=== PATIENT | male | born 1995 | race Caucasian/White ===

== ENCOUNTER 2019-12-30 16:35 | Emergency (ER) | payer OTHER ==
[~2019-12-30] VITALS: Ht 182.8 cm; Wt 77.0 kg
[~2019-12-30 16:35] MED LIST: CEPH500T PO; CLIN150C17 PO; CODE118S4 PO; FAMO20TA5 PO; HYDR-4226 PO; SULF1TAB38 PO
[2019-12-30 16:40] VITALS: BP 130/86
--- OUTSIDE RECORDS SUMMARY | 2019-12-30 16:42 | XMS REPORT | Continuity of Care Document ---
Author Organization Unknown Address Unknown Phone Unavailable Allergies Active Description Code Type Severity Reaction Onset Reported/Identified Relationship to Patient Clinical Status Yes Penicillins Drug Allergy N/A N/A 10/29/2008 Yes shimp Food Allergy N/A N/A 10/29/2008 Yes Penicillins Drug Allergy 10/29/2008 Yes shimp Food Allergy 10/29/2008 Yes Penicillins [id number] Drug Aller gy Unknown N/A 03/20/2010 Yes SHRIMP SHRIMP Unknown N/A 03/20/2010 Medications There is no data. Problems Date Dx Coded Attending Type Code Diagnosis Diagnosed By 10/29/2008 535.50 GAS TRITIS 10/29/2008 EUN CEBALLOS DO 535.50 GASTRITIS 03/19/2010 682.6 CELL ULITIS AND ABSCESS OF LEG EXCEPT FOOT 03/19/2010 EUN CEBALLOS DO 682.6 CELLULITIS AND ABSCESS OF LEG EXCEPT FOOT 04/11/2010 V70.3 SPOR TS/SCHOOL EXAM 04/11/2010 EUN CEBALLOS DO V70.3 SPORTS/SCHOOL EXAM 07/14/2010 478.19 OTH ER DISEASES OF NASAL CAVITY AND SINUSES 07/14/2010 719.46 JACQUI N IN JOINT INVOLVING LOWER LEG 07/14/2010 787.20 DYS PHAGIA UNSPECIFIED 07/14/2010 EUN CEBALLOS DO 478.19 OTHER DISEASES OF NASAL CAVITY AND SINUSES 07/14/2010 EUN CEBALLOS DO 719.46 PAIN IN JOINT INVOLVING LOWER LEG 07/14/2010 EUN CEBALLOS DO 787.20 DYSPHAGIA UNSPECIFIED 09/02/2010 789.66 ABD OMINAL TENDERNESS EPIGASTRIC 09/02/2010 EUN CEBALLOS DO 789.66 ABDOMINAL TENDERNESS EPIGASTRIC 12/30/2010 V70.5 PREEMPLOYMENT/PRESCHOOL EXAM 12/30/2010 EUN CEBALLOS DO V70.5 PREEMPLOYMENT/PRESCHOOL EXAM 03/23/2011 112.3 CAND IDIASIS OF SKIN AND NAILS 03/23/2011 EUN CEBALLOS DO 112.3 CANDIDIASIS OF SKIN AND NAILS 10/14/2011 462 ACUTE PHARYNGITIS 10/14/2011 EUN CEBALLOS DO K 462 ACUTE PHARYNGITIS 03/08/2013 EUN CEBALLOS DO V04.81 FLU SHOT 02/21/2015 CHARLIE HERNANDEZ Ot 4 62 ACUTE PHARYNGITIS 02/21/2015 CHARLIE HERNANDEZ Ot 465.9 ACUTE URI NOS 07/18/2015 YUSEF MOLINA APRN Ot K02 .9 DENTAL CARIES, UNSPECIFIED 07/18/2015 YUSEF MOLINA APRN Ot K04 .7 PERIAPICAL ABSCESS WITHOUT SINUS 07/18/2015 YUSEF MOLINA APRN Ot K08 .8 OTHER SPECIFIED DISORDERS OF TEETH AND S 07/19/2015 RICHARD MEREDITH, MAJO Anders Ot K02. 9 DENTAL CARIES, UNSPECIFIED 01/28/2016 YUSEF MOLINA APRN Ot S93.401A SPRAIN OF UNSPECIFIED LIGAMENT OF RIGHT 01/28/2016 YUSEF MOLINA APRN Ot S99.911A UNSPECIFIED INJURY OF RIGHT ANKLE, INITI 01/28/2016 YUSEF MOLINA APRN Ot X58.XXXA EXPOSURE TO OTHER SPECIFIED FACTORS, INI 01/28/2016 YUSEF MOLINA APRN Ot Y99 .8 OTHER EXTERNAL CAUSE STATUS 01/29/2016 YUSEF MOLINA APRN Ot S93.401A SPRAIN OF UNSPECIFIED LIGAMENT OF RIGHT 01/29/2016 YUSEF MOLINA APRN Ot S99.911A UNSPECIFIED INJURY OF RIGHT ANKLE, INITI 01/29/2016 YUSEF MOLINA APRN Ot X58.XXXA EXPOSURE TO OTHER SPECIFIED FACTORS, INI 01/29/2016 YUSEF MOLINA APRN Ot Y99 .8 OTHER EXTERNAL CAUSE STATUS Procedures There is no data. Results Test Result Range CBC - 09/02/18 13:41 WHITE BLOOD CELL COUNT 4.8 Thousand/uL 3 .8-10.8 RED BLOOD CELL COUNT 5.65 Million/uL 4.2 0-5.80 HEMOGLOBIN 18.0 g/dL 13.2-17.1 HEMATOCRIT 51.1 % 38.5-50.0 MCV 90.4 fL 80.0-100.0 MCH 31.9 pg 27.0-33.0 MCHC 35.2 g/dL 32.0-36.0 RDW 12.8 % 11.0-15.0 PLATELET COUNT 230 Thousand/uL 140-400 MPV 10.9 fL 7.5-12.5 ABSOLUTE NEUTROPHILS 2645 cells/uL 1500- 7800 ABSOLUTE LYMPHOCYTES 1478 cells/uL 850-3 900 ABSOLUTE MONOCYTES 389 cells/uL 200-950 ABSOLUTE EOSINOPHILS 230 cells/uL 15-500 ABSOLUTE BASOPHILS 58 cells/uL 0-200 NEUTROPHILS 55.1 % NRG LYMPHOCYTES 30.8 % NRG MONOCYTES 8.1 % NRG EOSINOPHILS 4.8 % NRG BASOPHILS 1.2 % NRG Encounters ACCT No. Visit Date/Time Discharge Status Pt. Type Provider Facility Loc./Unit Complaint [id number] 03/08/2013 15:36:00 03/08/2013 23:59: 59 [place] [id number] 04/11/2012 15:55:00 04/11/2012 23:59:5 9 CLS Outpatient [id number] 10/31/2018 10:31:00 019 23:59:59 CLS Preadmit NANDO MEREDITH, PARTH Patel [facility] RAD SEIZURE DISORDER [id number] 01/28/2016 21:11:00 016 21:54:00 DIS Emergency YUSEF MOLINA APRN [facility] ER R FOOT INJ [id number] 07/19/2015 00:13:00 016 00:23:00 DIS Emergency MAJO RAMOS MD [facility] ER DENTAL PAIN [id number] 07/18/2015 19:50:00 016 20:19:00 DIS Emergency YUSEF MOLINA APRN [facility] ER DENTAL PAIN [id number] 02/21/2015 19:23:00 015 22:06:00 DIS Emergency CHARLIE HERNANDEZ [facility] ER SORE THROAT, NECK PAIN, FATIGUE [id number] 01/10/2019 14:40:00 01/10/2019 23:59:5 9 CLS Outpatient CHUCHO VALLE APRN [facility] [id number] 09/02/2018 13:20:00 Document Registration
--- OUTSIDE RECORDS SUMMARY | 2019-12-30 16:42 | XMS REPORT ---
Author Author Jarvis COLLIER Organization [facility] Address [address] [place] [address] Care Team Providers Care Heater Operator Name Role Phone PARTH COLLIER Unavailable PROBLEMS Unknown Problems ALLERGIES Substance Reaction Event Type Date Status Penicillin G Benzathine Unknown Drug Allergy Mar, Acti ve ENCOUNTERS Encounter Location Date Diagnosis [place] [address] [address] Mar, Right flank pain R10.9 [place] [address] [address] 20 Mar, 2017 Viral syndrome B34.9 [place] [address] [address] 14 Mar, 2017 Strain of lumbar region, ini tial encounter S39.012A and Contusion of left lower leg, initial encounter S80.12XA [facility] [id number] [place] [id number] Jul, Dental examination Z01.20 [facility] [address] [place] [id number] [address] [place] [phone] 09 Jul, 2015 Periodontal abscess K05.21 a nd Lumbago M54.5 [facility] [address] [place] [id number] [address] [place] [phone] 29 Jul, 2015 Dental examination Z01.20 [facility] [address] [id number] 19 Jul, 2015 Encounter for dental examina tion and cleaning without abnormal findings Z01.20 [facility] [address] [place] [id number] [address] [place] [phone] 08 Feb, 2016 Dental examination Z01.20 [facility] [address] [id number] [address] [place] [address] [id number] 13 Sep, 2014 Dental examination V72.2 [facility] [address] [id number] [address] [place] [phone] 14 Aug, 2014 [facility] [address] [id number] [address] [place] [phone] Aug, [facility] [address] [id number] [address] [place] [phone] Jul, [facility] [address] [id number] [address] [place] [phone] Jul, [facility] [address] [id number] [address] [place] [phone] Feb, [facility] [address] [id number] [address] [place] [phone] Feb, [facility] [address] [id number] [address] [place] [phone] Mar, [facility] [address] [id number] [address] [place] [phone] Mar, [facility] [address] [id number] [address] [place] [phone] September, [facility] [address] [id number] [address] [place] [phone] Feb, [facility] [address] [id number] [address] [place] [phone] Jul, [facility] [address] [id number] [address] [place] [phone] Mar, [facility] [address] [id number] [address] [place] [phone] Mar, [facility] [address] [id number] [address] [place] [phone] Feb, [facility] [address] [id number] [address] [place] [phone] Feb, [facility] [address] [facility] [id number] [address] [place] [phone] Feb, IMMUNIZATIONS No Known Immunizations SOCIAL HISTORY Never Assessed REASON FOR VISIT fever/chills for three days, lower back pain--Bill Mathur MA PLAN OF CARE Activity Details Follow Up prn Reason: VITAL SIGNS Height 70 in 2017-04-19 Weight 155.8 lbs 2017-04-19 Temperature 99.3 degrees Fahrenheit 2017-04-19 Heart Rate 92 bpm 2017-04-19 Respiratory Rate 2017-04-19 BMI 22.35 kg/m2 2017-04-19 Blood pressure systolic 112 mmHg 2017-04-19 Blood pressure diastolic 78 mmHg 2017-04-19 MEDICATIONS Medication Instructions Dosage Frequency Start Date End Date Duration S navjot Cyclobenzaprine HCl 10 mg Orally Three times a day 1 tablet as need ed 8h Mar, Mar, 07 days Active Diclofenac Sodium 75 MG Orally Twice a day 1 tablet with food or mi lk 12h Mar, Mar, 14 days Not-Taking RESULTS No Results PROCEDURES No Known procedures INSTRUCTIONS MEDICATIONS ADMINISTERED No Known Medications MEDICAL (GENERAL) HISTORY Type Description Date Surgical History tonsillectomy Hospitalization History MRSA
--- OUTSIDE RECORDS SUMMARY | 2019-12-30 16:42 | XMS REPORT ---
Author Author Jarvis Patino Doctor Organization [facility] Address Unknown Phone Unavailable Care Team Providers Care Traffic Signal Technician Name Role Phone Migration, Doctor Unavailable Unavailable PROBLEMS Unknown Problems ALLERGIES No Information ENCOUNTERS Encounter Location Date Diagnosis [place] [address] [address] Mar, Right flank pain R10.9 [place] [address] [address] Mar, Viral syndrome B34.9 [place] [address] [address] 14 Mar, 2017 Strain of lumbar region, ini tial encounter S39.012A and Contusion of left lower leg, initial encounter S80.12XA [facility] [address] [place] [id number] [place] [phone] Jul, Dental examination Z01.20 [place] [address] [address] Jul, Periodontal abscess K05.21 a nd Lumbago M54.5 [place] [address] [address] Jul, Dental examination Z01.20 [facility] [address] [place] [id number] [place] [address] [id number] 19 Jul, 2015 Encounter for dental examina tion and cleaning without abnormal findings Z01.20 [place] [address] [place] [id number] [address] [place] [phone] 08 Jul, 2015 Dental examination Z01.20 [facility] [address] [place] [id number] September, Dental examination V72.2 [facility] [address] [id number] [address] [place] [address], [place] [address] 14 Aug, 2014 [facility] [address] [id number] [address] [place] [address], [place] [address] 13 Aug, 2014 [facility] [address] [id number] [address] [place] [address], [place] [address] Jul, [facility] [address] [id number] [address] [place] [address], [place] [address] Jul, [facility] [address] [id number] [address] [place] [address], [place] [address] Feb, [facility] [address] [id number] [address] [place] [address], [place] [address] Feb, [facility] [address] [id number] [address] [place] [address], [place] [address] Mar, [facility] [address] [id number] [address] [place] [address], [place] [address] Mar, [facility] [address] [id number] [address] [place] [address], [place] [address] September, [facility] [address] [id number] [address] [place] [address], [place] [address] Feb, [facility] [address] [id number] [address] [place] [address], [place] [address] Jul, [facility] [address] [id number] [address] [place] [address], [place] [address] Mar, [facility] [address] [id number] [address] [place] [address], [place] [address] Mar, [facility] [address] [id number] [address] [place] [address], [place] [address] Feb, [facility] [address] [id number] [address] [place] [address], [place] [address] Feb, [facility] [address] [id number] [address] [place] [address], [place] [address] Feb, IMMUNIZATIONS No Known Immunizations SOCIAL HISTORY Never Assessed REASON FOR VISIT [facility] [place] CARE VITAL SIGNS MEDICATIONS Medication Instructions Dosage Frequency Start Date End Date Duration S tatus MethylPREDNISolone 4 mg by Oral route ev raiza day for 6 days as directed per dose pack Jul, Active Silvadene 1 % apply 1 dose a 1/16 inch (1.5 mm) thick layer to entire burn area by Topical route 1 time per day Jul, Active RESULTS No Results PROCEDURES No Known procedures INSTRUCTIONS MEDICATIONS ADMINISTERED No Known Medications MEDICAL (GENERAL) HISTORY Type Description Date Surgical History tonsillectomy Hospitalization History MRSA
--- OUTSIDE RECORDS SUMMARY | 2019-12-30 16:42 | XMS REPORT ---
Author Author Jarvis Patino Doctor Organization [facility] Address Unknown Phone Unavailable Care Team Providers Care Rehab/Pre Vocational Counselor Name Role Phone Migration, Doctor Unavailable Unavailable PROBLEMS Unknown Problems ALLERGIES No Information ENCOUNTERS Encounter Location Date Diagnosis [place] [address] [address] September, [place] [address] [address] Aug, Syncope and collapse R55 [place] [address] [address] Aug, Syncope and collapse R55 [place] [address] [address] Mar, Right flank pain R10.9 [place] [address] [address] Mar, Viral syndrome B34.9 [place] [address] [place] [id number] [address] [place] [address] Mar, Strain of lumbar region, ini tial encounter S39.012A and Contusion of left lower leg, initial encounter S80.12XA [facility] [address] [place] [id number] Jul, Dental examination Z01.20 [place] [place] [id number] [address] [place] [address] Jul, Periodontal abscess K05.21 a nd Lumbago M54.5 [place] [address] [place] [id number] [address] [place] [phone] Jul, Dental examination Z01.20 [facility] [address] [place] [address] [id number] b, 2016 Encounter for dental examina tion and cleaning without abnormal findings Z01.20 [facility] [address] [id number] [address] [place] [phone] 08 Jul, 2016 Dental examination Z01.20 [facility] [address] [id number] [address] [place] [address] [id number] 13 Sep, 2014 Dental examination V72.2 [facility] [address] [id number] [address] [place] [address] 14 Aug, 2014 [facility] [address] [id number] [address] [place] [phone] Aug, [facility] [address] [id number] [address] [place] [phone] Jul, [facility] [address] [id number] [address] [place] [address] Jul, [facility] [address] [id number] [address] [place] [phone] Feb, [facility] [address] [id number] [address] [place] [address] Feb, [facility] [address] [id number] [address] [place] [phone] Mar, [facility] [address] [id number] [address] [place] [address] Mar, [facility] [address] [id number] [address] [place] [address] September, [facility] [address] [id number] [address] [place] [phone] Feb, [facility] [address] [id number] [address] [place] [phone] 14 Jul, 2010 [facility] [address] [id number] [address] [place] [address] Mar, [facility] [address] [id number] [address] [place] [phone] Mar, [facility] [address] [facility] [id number] [address] [place] [phone] Feb, [facility] [address] [facility] [id number] [address] [place] [phone] Feb, [facility] [address] [facility] [id number] [address] [place] [address] Feb, IMMUNIZATIONS No Known Immunizations SOCIAL HISTORY Never Assessed REASON FOR VISIT EMR[place] PLAN OF CARE VITAL SIGNS MEDICATIONS Unknown Medications RESULTS No Results PROCEDURES No Known procedures INSTRUCTIONS MEDICATIONS ADMINISTERED No Known Medications MEDICAL (GENERAL) HISTORY Type Description Date Surgical History tonsillectomy Hospitalization History MRSA
--- OUTSIDE RECORDS SUMMARY | 2019-12-30 16:42 | XMS REPORT ---
Author Author Jarvis POWERS Organization [facility] Address [address] [place] [address] Care Team Providers Care Card Placer Name Role Phone ROSIE POWERS Unavailable PROBLEMS Unknown Problems ALLERGIES Substance Reaction Event Type Date Status Penicillin G Benzathine Unknown Drug Allergy Mar, Acti ve ENCOUNTERS Encounter Location Date Diagnosis [address] [address] Mar, Right flank pain R10.9 [place] [address] [address] 20 Mar, 2017 Viral syndrome B34.[address] [address] 14 Mar, 2017 Strain of lumbar region, ini tial encounter S39.012A and Contusion of left lower leg, initial encounter S80.12XA [facility] [address] [place] [address] [id number] Jul, Dental examination Z01.20 [place] [address] [place] [id number] [address] [place] [phone] 09 Jul, 2015 Periodontal abscess K05.21 a nd Lumbago M54.5 [place] [address] [place] [id number] [address] [place] [phone] 29 Jul, 2015 Dental examination Z01.20 [facility] [address] [place] [id number] [place] [address] [id number] 19 Jul, 2015 Encounter for dental examina tion and cleaning without abnormal findings Z01.20 [place] 0[address] [place] [id number] [address] [place] [phone] 08 Jul, 2015 Dental examination Z01.20 [facility] [address] [id number] [address] [place] [address] [id number] September, Dental examination V72.2 [facility] [address] [id number] [address] [place] [phone] Aug, [facility] [address] [id number] [address] [place] [phone] Aug, [facility] [address] [id number] [address] [place] [phone] Jul, [facility] [address] [id number] [address] [place] [address], [place] [address] Jul, [facility] [address] [id number] [address] [place] [phone] Feb, [facility] [address] [id number] [address] [place] [phone] Feb, [facility] [address] [id number] [address] [place] [phone] Mar, [facility] [address] [id number] [address] [place] [phone] Mar, [facility] [address] [id number] [address] [place] [phone] September, [facility] [address] [id number] [address] [place] [phone] Feb, [facility] [address] [id number] [address] [place] [phone] Jul, [facility] [address] [id number] [address] [place] [phone] Mar, [facility] [address] [id number] [address] [place] [phone] Mar, [facility] [address] [id number] [address] [place] [phone] Feb, [facility] [address] [id number] [address] [address] Feb, [facility] [address] [facility] [id number] [address] [address] Feb, IMMUNIZATIONS No Known Immunizations SOCIAL HISTORY Never Assessed REASON FOR VISIT Pain (acute)back, whole back area frezzes up with pain for two weeks-Adam FOX PLAN OF CARE Activity Details Follow Up prn Reason: VITAL SIGNS Height 70 in 2017-04-21 Weight 155.6 lbs 2017-04-21 Temperature 98.4 degrees Fahrenheit 2017-04-21 Heart Rate 76 bpm 2017-04-21 Respiratory Rate 18 2017-04-21 BMI 22.32 kg/m2 2017-04-21 Blood pressure systolic 114 mmHg 2017-04-21 Blood pressure diastolic 78 mmHg 2017-04-21 MEDICATIONS Medication Instructions Dosage Frequency Start Date End Date Duration S tatus Diclofenac Sodium 75 MG Orally Twice a day 1 tablet with food or mi lk 12h Mar, Mar, 14 days Active RESULTS No Results PROCEDURES No Known procedures INSTRUCTIONS MEDICATIONS ADMINISTERED No Known Medications MEDICAL (GENERAL) HISTORY Type Description Date Surgical History tonsillectomy Hospitalization History MRSA
--- OUTSIDE RECORDS SUMMARY | 2019-12-30 16:42 | XMS REPORT ---
Author Author Jarvis Patino Doctor Organization [facility] Address Unknown Phone Unavailable Care Team Providers Care Supervisor Concrete Block [employer] Name Role Phone Migration, Doctor Unavailable Unavailable PROBLEMS Type Condition ICD9-CM Code RTZ70-VS Code Onset Dates Condition S tatus SNOMED Code Problem Seizure disorder G40.909 Active 128 [id number] ALLERGIES No Information ENCOUNTERS Encounter Location Date Diagnosis [place] [id number] [facility] [id number] [address] [place] [phone] September, Seizure disorder G40.909 [place] [address] [place] [id number] [address] [place] [phone] September, Seizure disorder G40.909 [facility] [address] [place] [id number] [address] [place] [phone] Aug, Syncope and collapse R55 [place] [address] [place] [id number] [address] [place] [phone] Aug, Syncope and collapse R55 [place] [address] [place] [id number] [address] [place] [phone] Mar, Right flank pain R10.9 [place] [address] [place] [id number] [address] [place] [phone] Mar, Viral syndrome B34.9 [facility] [address] [place] [id number] [address] [place] [phone] 14 Mar, 2017 Strain of lumbar region, ini tial encounter S39.012A and Contusion of left lower leg, initial encounter S80.12XA [facility] [address] [id number] [address] [place] [phone] Jul, Dental examination Z01.20 [facility] [address] [facility] [id number] [address] [place] [phone] Jul, Periodontal abscess K05.21 a nd Lumbago M54.5 [facility] [address] [id number] [address] [place] [phone] 29 Jul, 2015 Dental examination Z01.20 [facility] [address] [id number] [address] [place] [phone] 19 Jul, 2015 Encounter for dental examina tion and cleaning without abnormal findings Z01.20 [facility] [address] [id number] [address] [place] [phone] 08 Jul, 2015 Dental examination Z01.20 [facility] [address] [id number] [address] [place] [address] [phone] September, Dental examination V72.2 [facility] [address] [id number] [address] [place] [phone] Aug, [facility] [address] [id number] [address] [place] [phone] Aug, [facility] [address] [id number] [address] [place] [phone] Jul, [facility] [address] [id number] [address] [place] [phone] Jul, [facility] [address] [id number] [address] [place] [phone] Feb, [facility] [address] [id number] [address] [place] [phone] Feb, [facility] [address] [id number] [address] [place] [phone] Mar, [facility] [address] [id number] [address] [place] [phone] Mar, [facility] [address] [id number] [address] [place] [phone] September, [facility] [address] [id number] [address] [place] [phone] Feb, [facility] [address] [id number] [address] [place] [phone] Jul, [facility] [address] [id number] [address] [place] [phone] Mar, [facility] [address] [id number] [address] [place] [phone] Mar, [facility] [address] [id number] [address] [place] [phone] Feb, [facility] [address] [id number] [address] [place] [phone] Feb, [facility] [address] [id number] [address] [place] [phone] Feb, IMMUNIZATIONS No Known Immunizations SOCIAL HISTORY Never Assessed REASON FOR VISIT PLAN OF CARE VITAL SIGNS Height 70 in 2014-07-31 Weight 145.06 lbs 2014-07-31 Temperature 98 degrees Fahrenheit 2014-07-31 Heart Rate 76 bpm 2014-07-31 Respiratory Rate 18 2014-07-31 Blood pressure systolic 114 mmHg 2014-07-31 Blood pressure diastolic 74 mmHg 2014-07-31 MEDICATIONS Unknown Medications RESULTS No Results PROCEDURES No Known procedures INSTRUCTIONS MEDICATIONS ADMINISTERED No Known Medications MEDICAL (GENERAL) HISTORY Type Description Date Surgical History tonsillectomy Hospitalization History MRSA
--- OUTSIDE RECORDS SUMMARY | 2019-12-30 16:42 | XMS REPORT ---
Author Author [place] [employer] hat block bench hand [email or web address] Address [address] [address] Care Team Providers Care Custom Dressmaker Name Role Phone NO, LOCAL PHYSICIAN Unavailable Unavailable ROSIE POWERS Unavailable PARTH COLLIER Unavailable PARTH COLLIER Unavailable Migration, Doctor Unavailable Unavailable Migration, Doctor Unavailable Unavailable PoliE, CHUCHO A Unavailable Unavailable Migration, Doctor Unavailable Unavailable Unavailable Unavailable Allergies The data below is from unstructured sources No Information No Information No Information No Information No Information Encounters Encounter Date Encounter Type Encounter Diagnosis Care Provider Facility Start: Patient encounter [facility] ([id number]) Start: [facility] encounter [facility] 10-[facility]-2018 procedure [facility] ([id number]) Start: [facility] unspecified, not intractable, without status epilepticus Start: Patient encounter [facility] 10-17-2018 procedure [facility] ([id number]) Start: Patient encounter [facility] 09-06-2018 procedure [facility] ([id number]) Start: Patient encounter [facility] 09-02-2018 procedure [facility] (41962) Start: Patient encounter [facility] 09-02-2018 procedure [facility] ([id number]) Medical Equipment No Information Goals No Information Immunizations The data below is from unstructured sourcesNo immunization records.No immunization records.No immunization records.No immunization records.No immunization records. No Known Immunizations No Known Immunizations No Known Immunizations No Known Immunizations No Known Immunizations No Known Immunizations No Known Immunizations No Known Immunizations Interventions No Information Medications The data below is from unstructured sources Unknown Medications Unknown Medications No Known Medications No Known Medications Unknown Medications No Known Medications Payers No Information Plan of Treatment The data below is from unstructured sources Discharge Date 01/28/16 9:54pm Disposition 01 HOME, SELF-CARE Condition at Discharge Stable Instructions/Education Provided Ankl e Sprain Exercises (GEN) Ankle Sprain (ED) Prescriptions See Medication Section Referrals PARTH MASON DPM - NO,LOCAL PHYSICIAN - Primary Care Physician SERJIO GUNTER DPM - Additional Instructions/Education 1. If your pain does not improve in 2-3 weeks, follow-up with one of the orthopedic surgeons listed 2. Return to ER for any concerns 3. Keep the foot elevated. Use ice pack for 20 minutes every 2-3 hours and use crutches for the next 3-5 days Discharge Date 07/18/15 8:19pm Disposition 01 HOME, SELF-CARE Condition at Discharge Improved Instructions/Education Provided Cooper al Abscess (ED) Prescriptions See Medication Section Referrals NO,LOCAL PHYSICIAN - [facility] Care Physician Additional Instructions/Education 1. Stop the current antibiotics and start the new antibiotics 2. Follow-up with your dentist as schedu led 3. Return to ER for any fevers or increa sed swelling All discharge instructions reviewed with patient and/or family. Voiced understanding. Discharge Date 07/19/15 12:23am Disposition 01 HOME, SELF-CARE Condition at Discharge Stable Instructions/Education Provided Cooper al Caries (ED) Prescriptions See Medication Section Referrals NO[facility] Additional Instructions/Education Se e dentist as soon as possible. All discharge instructions reviewed with patient and/or family. Voiced understanding. Activity Details Follow Up prn Reason: Problems Problem Problem Date Last Documented Episodic/Chr Provider Classificati Recorded Date onic on Epilepsy; Seizure disorder ; Translations: Chronic Doctor convulsions [Epilepsy, unspecified, not Migrati on (3 sources) intractable, without status epilepticus] Procedures The data below is from unstructured sourcesNo known history of procedures.No known history of procedures.No known history of procedures.No known history of procedures.No known history of procedures. No Known procedures No Known procedures No Known procedures No Known procedures No Known procedures No Known procedures No Known procedures No Known procedures Results Test Name Value Interpreta Reference Facilit Date tion Range y Time laboratory on 2018-09-02 Albumin [Mass/Vol] 5.1 g/dL Normal 3.6-5.1 Communi g/dL [facility] ([id number]) Albumin/Globulin 2.1 {ratio} Normal 1.0-2.5 Communi [Mass ratio] (calc) [facility] (73225) ALP [Catalytic 77 U/L Normal 40-115 U/L Communi activity/Vol] [facility] (83235) ALT [Catalytic 10 U/L Normal 9-46 U/L Communi activity/Vol] [facility] (73040) AST [Catalytic 16 U/L Normal 10-40 U/L Communi activity/Vol] [facility] (65021) Basophils (Bld) 0.058 10*3/uL Normal 0-200 Communi [#/Vol] cells/uL [facility] (49958) Basophils/100 WBC 1.2 % Normal % Communi (Bld) [facility] (62169) Bilirubin [Mass/Vol] 0.7 mg/dL Normal 0.2-1.2 Commu ni mg/dL [facility] (15916) Calcium [Mass/Vol] 10.1 mg/dL Normal 8.6-10.3 Communi mg/dL [facility] (24547) Chloride [Moles/Vol] 104 mmol/L Normal 98-110 Commu ni mmol/L [facility] (11509) CO2 [Moles/Vol] 28 mmol/L Normal 20-32 Communi mmol/L [facility] (15295) Creatinine 0.81 mg/dL Normal 0.60-1.35 Communi [Mass/Vol] mg/dL [facility] (13350) Eosinophils (Bld) 0.23 10*3/uL Normal 15-500 Communi [#/Vol] cells/uL [facility] (91525) Eosinophils/100 WBC 4.8 % Normal % Commun i (Bld) [facility] (78762) Erythrocyte 12.8 % Normal 11.0-15.0 Communi distribution width % ty (RBC) [Ratio] [facility] (08094) GFR/1.73 sq 145 mL/min/{1.73_m2} Normal > OR = 60 Commu ni M.predicted among mL/min/1.7 ty blacks MDRD 3m2 Health (S/P/Bld) [Vol Center rate/Area] [facility] (91085) GFR/1.73 sq 125 mL/min/{1.73_m2} Normal > OR = 60 Commu ni M.predicted MDRD mL/min/1.7 ty (S/P/Bld) [Vol 3m2 Health rate/Area] [facility] () Globulin (S) 2.4 g/dL Normal 1.9-3.7 Communi [Mass/Vol] g/dL ty (calc) [facility] (57881) Glucose [Mass/Vol] 77 mg/dL Normal 65-99 Communi mg/dL ty [facility] (24887) Hematocrit (Bld) 51.1 % High 38.5-50.0 Communi [Volume fraction] % ty [facility] (13009) Hemoglobin (Bld) 18.0 g/dL High 13.2-17.1 Communi [Mass/Vol] g/dL ty [facility] (76960) Lymphocytes (Bld) 1.478 10*3/uL Normal 850-3900 Commun i [#/Vol] cells/uL ty [facility] (83797) Lymphocytes/100 WBC 30.8 % Normal % Commun i (Bld) ty [facility] (18759) MCH (RBC) [Entitic 31.9 pg Normal 27.0-33.0 Communi mass] pg ty [facility] (46360) MCHC (RBC) 35.2 g/dL Normal 32.0-36.0 Communi [Mass/Vol] g/dL ty [facility] (31288) MCV (RBC) [Entitic 90.4 fL Normal 80.0-100.0 Communi vol] fL ty [facility] (88041) Monocytes (Bld) 0.389 10*3/uL Normal 200-950 Communi [#/Vol] cells/uL ty [facility] (05895) Monocytes/100 WBC 8.1 % Normal % Communi (Bld) [facility] (85542) Neutrophils (Bld) 2.645 10*3/uL Normal 4077-3354 Commun i [#/Vol] cells/uL ty [facility] (12223) Neutrophils/100 WBC 55.1 % Normal % Commun i (Bld) [facility] (65579) Platelet mean volume 10.9 fL Normal 7.5-12.5 Commu ni (Bld) [Entitic vol] fL [facility] (95511) Platelets (Bld) 230 10*3/uL Normal 140-400 Communi [#/Vol] Thousand/u ty L [facility] (83217) Potassium 4.7 mmol/L Normal 3.5-5.3 Communi [Moles/Vol] mmol/L ty [facility] (86025) Protein [Mass/Vol] 7.5 g/dL Normal 6.1-8.1 Communi g/dL [facility] (40926) RBC (Bld) [#/Vol] 5.65 10*6/uL Normal 4.20-5.80 Communi Million/uL ty [facility] (67154) Sodium [Moles/Vol] 140 mmol/L Normal 135-146 Communi mmol/L ty [facility] (11738) Urea nitrogen 9 mg/dL Normal 7-25 mg/dL Communi [Mass/Vol] [facility] (63594) Urea NOT APPLICABLE Invalid 6-22 Communi nitrogen/Creatinine Interpreta (calc) ty [Mass ratio] tion Code [facility] (47310) WBC (Bld) [#/Vol] 4.8 10*3/uL Normal 3.8-10.8 Communi Thousand/u ty L [facility] (29535) Social History No Information Vital Signs Date Time Vital Sign Value Performing Clinician Buck mcrae 07-31-2014 Body height 177.8 cm Doctor Migration [facility] 09:160500 [facility] (72840) 07-31-2014 Body temperature 98 [degF] Doctor Migration [facility] 09:16-0500 [facility] (88376) 07-31-2014 Body weight 65.8 kg Doctor Migration [facility] 09:160500 [facility] (88029) Functional Status The data below is from unstructured sourcesNo functional status results.No functional status results.No functional status results.No functional status results.No functional status results. Mental Status No Information Advance Directives Directive Response Recor ded Date/Time Advance Directives No 9:14pm Health Care Power of Marine Equipment Design Engineer No 01/28/16 9:14pm Resuscitation Status Full Code 01/28/16 9:14pm Directive Response Recor ded Date/Time Advance Directives No 7:57pm Health Care Power of Marine Equipment Design Engineer No 07/18/15 7:57pm Resuscitation Status Full Code 07/18/15 7:57pm Directive Response Recor ded Date/Time Advance Directives No 12:15am Health Care Power of Marine Equipment Design Engineer No 07/19/15 12:15am Resuscitation Status Full Code 07/19/15 12:15am Discharge Instructions No hospital discharge instructions.No hospital discharge instructions.No hospital discharge instructions. Additional Source Comments This clinical document has been generated using [employer] software that has been certified by the Office of the National Coordinator for Health Information Technology (ONC 15.99.04.3023.Diam.31.00.0.274850) and the National Committee for Senior Billing Consultant (NCQA, as an eMeasure certified technology). FOR RECORDS PERTAINING TO PATIENTS WHO ARE OR HAVE BEEN ENROLLED IN A CHEMICAL D EPENDENCY/SUBSTANCE ABUSE PROGRAM, SOME INFORMATION MAY BE OMITTED. This clinica summary was aggregated from multiple sources. Caution should be exercised in using it in the provision of clinical care. This summary normalizes information from multiple sources, and as a consequence, information in this document may ma terially change the coding, format and clinical context of patient data. In yovany tion, data may be omitted in some cases. CLINICAL DECISIONS SHOULD BE BASED ON T HE PRIMARY CLINICAL RECORDS. [facility]. provides no warranty or guara ntee of the accuracy or completeness of information in this document.The followi ng information is based on time limited clinical information UNRECOGNIZED CONTENT PROVIDED BELOW FOR UNRECOGNIZED SECTION REASON FOR VISIT [id number]
[2019-12-30] MEDS ORDERED: CLIN300C11 PO (16:48)
[2019-12-30] MEDS ORDERED: NAPR-1071 PO (16:48)
[2019-12-30] MEDS ORDERED: ACET-1672 PO (16:48)
--- NOTE | 2019-12-30 16:48 | ED EENT ---
History of Present Illness General Chief Complaint: Dental Problems/Pain Stated Complaint: DENTAL PAIN Source: patient Exam Limitations: no limitations History of Present Illness Date Seen by Provider: Dec 30, 2019 Time Seen by Provider: 16:44 Initial Comments To ER for left lower dental pain since last night Timing/Duration: abrupt Severity: moderate Location: dental Prearrival Treatment: no prearrival treatment Associated Symptoms: tooth pain Allergies and Home Medications Allergies Coded Allergies: Penicillins (Unverified Allergy, Unknown, 03/20/10) Uncoded Allergies: SHRIMP (Allergy, Unknown, 03/20/10) Home Medications Acetaminophen/Diphenhydramine 1 Each Tablet, 2 EACH PO Q6H PRN for PAIN-MODERATE (5-7) Prescribed by: YUSEF MOLINA on 12/30/191647 Clindamycin HCl 300 Mg Capsule, 300 MG PO TID Prescribed by: YUSEF MOLINA on 12/30/191647 Naproxen 500 Mg Tablet, 500 MG PO BID PRN for PAIN-MODERATE (5-7) Prescribed by: YUSEF MOLINA on 12/30/191647 Patient Home Medication List Home Medication List Reviewed: Yes Review of Systems Review of Systems Constitutional: see HPI Eyes: No Symptoms Reported Ears: No Symptoms Reported Nose: no symptoms reported Mouth: no symptoms reported Throat: no symptoms reported Respiratory: no symptoms reported Cardiovascular: no symptoms reported Musculoskeletal: no symptoms reported Past Hkmomii-Rnlmyi-Suqkil Hx Patient Social History Alcohol Use: Denies Use Number of Drinks Today: AA Alcohol Beverage of Choice: Beer Recreational Drug Use: No Drug of Choice: MARIJUANA Smoking Status: Current Everyday Smoker Type Used: Cigarettes 2nd Hand Smoke Exposure: Yes Recent Foreign Travel: No Contact w/Someone Who Travel: No Recent Hopitalizations: No Immunizations Up To Date PED Vaccines UTD: Yes Seasonal Allergies Seasonal Allergies: No Past Medical History Surgeries: No Respiratory: No Cardiac: No Neurological: Yes Seizure Disorder Reproductive Disorders: No Gastrointestinal: No Musculoskeletal: No Endocrine: No HEENT: No Cancer: No Psychosocial: No Blood Disorders: No Family Medical History No Pertinent Family Hx Physical Exam Vital Signs Vital Signs - First Documented 12/30/19 16:40 Temp 36.9 Pulse 69 Resp 20 B/P (MAP) 130/86 (101) Pulse Ox 97 O2 Delivery Room Air Height, Weight, BMI Height: 6'0" Weight: 160lbs. oz. 72.605770lo; 21.70 BMI Method:Stated General Appearance: WD/WN, no apparent distress Eyes: bilateral eye normal inspection, bilateral eye PERRL, bilateral eye EOMI Ears: bilateral ear auricle normal, bilateral ear canal normal, bilateral ear TM normal Mouth/Throat: dental tenderness; No mandibular swelling; other (fractured and carious left lower molars) Neck: non-tender, full range of motion Respiratory: no respiratory distress, no accessory muscle use Neurologic/Psychiatric: alert, normal mood/affect, oriented x 3 Skin: normal color, warm/dry Progress/Results/Core Measures Results/Orders Vital Signs/I&O 12/30/19 16:40 Temp 36.9 Pulse 69 Resp 20 B/P (MAP) 130/86 (101) Pulse Ox 97 O2 Delivery Room Air Departure Impression Primary Impression: Dental caries Disposition: HOME, SELF-CARE Condition: Stable Departure-Patient Inst. Decision time for Depature: 16:46 Referrals: NO,LOCAL PHYSICIAN (PCP/Family) Primary Care Physician Patient Instructions: Dental Pain Add. Discharge Instructions: 1. Medication as directed 2. Return to ER for any concerns 3. All discharge instructions reviewed with patient and/or family. Voiced understanding. Scripts Acetaminophen/Diphenhydramine (Percogesic 325-12.5 mg Tablet) 1 Each Tablet 2 EACH PO Q6H PRN for PAIN-MODERATE (5-7), #14 TAB Prov: YUSEF MOLINA APRN 12/30/19 Naproxen (Naprosyn) 500 Mg Tablet 500 MG PO BID PRN for PAIN-MODERATE (5-7), #30 TAB 0 Refills Prov: YUSEF MOLINA APRN 12/30/19 Clindamycin HCl (Clindamycin HCl) 300 Mg Capsule 300 MG PO TID, #21 CAP Prov: YUSEF MOLINA APRN 12/30/19 YUSEF MOLINA APRN Dec 30, 2019 16:48
== END 2019-12-30 16:50 | disposition home or self-care (01) ==
LOC: EDUNIT# 16:35 → ER 16:37
DX: K02.9 Dental caries, unspecified (principal); G40.909 Epilepsy, unspecified, not intractable, without status epilepticus; F17.210 Nicotine dependence, cigarettes, uncomplicated
CPT/HCPCS: 99282

== ENCOUNTER 2020-01-16 14:06 | Emergency (ER) | payer OTHER ==
[~2020-01-16] VITALS: Ht 182.9 cm; Wt 77.3 kg
[~2020-01-16 14:06] MED LIST changes: +ACET-1672 PO; +CLIN300C11 PO; +NAPR-1071 PO
[2020-01-16] MEDS ORDERED: TETANUS,DIPTH,PERTUSS P/F (BOOSTRIX) 0.5 ML VIAL IM ONE (15:15)
[2020-01-16] MEDS ORDERED: HYDROcodone/APAP 5 MG/325 MG (LORTAB) TAB PO ONE (15:15)
--- NOTE | 2020-01-16 15:30 | Diagnostic Imaging Report ---
HISTORY: Left chest and right lateral flank pain. COMPARISON: None TECHNIQUE: Frontal and oblique views of the bilateral ribs. FINDINGS: The lung volumes are normal. No focal consolidation is seen. There is no pleural effusion or pneumothorax. The cardiac silhouette is normal in size. No rib fracture is seen. IMPRESSION: 1. No rib fracture is seen bilaterally. No acute pulmonary abnormality. Dictated by: Dictated on workstation # [id number]
--- NOTE | 2020-01-16 15:53 | ED Fall/Injury ---
General Chief Complaint: Trauma-Non Activation Stated Complaint: RIB INJURY Nursing Triage Note: Abrasion to L chest wall (17x6cm). Abrasion to R lateral flank ([id number]). Pt reports discomfort when taking a deep breath. Shallow breathing noted. Bilat breath sounds heard bilat. History of Present Illness Date Seen by Provider: Jan 16, 2020 Time Seen by Provider: 15:05 Initial Comments 24-year-old male presents for bilateral abrasions to his left chest wall and right flank. These occurred approximately 2 hours ago. He was at work when he fell into a dirt hold 2 different times. It was approximately 6 foot in depth. The second fall was witnessed by his father and a coworker, they report he was dizzy and possibly lost consciousness for a few seconds. He denies any neck or back pain. No headache or nausea. He does have a history of seizures in the past and is not medicated for these. Location Injury Occurred: Fathers home, [place]. Occurred: just prior to arrival Loss of Consciousness: brief (seconds) (per father and co-worker that witnessed fall) Associated Symptoms (Fall): No Abdominal Pain, No Chest Pain, No Confusion, No Dizziness, No Headache, No Lightheadedness, No Muscle Spasms, No Nausea/Vomiting, No Neck Pain, No Seizures, No Shortness of Air, No Slurred Spe ech, No Trouble Walking, No Vision Changes Allergies and Home Medications Allergies Coded Allergies: Penicillins (Unverified Allergy, Unknown, 03/20/10) Uncoded Allergies: SHRIMP (Allergy, Unknown, 03/20/10) Home Medications Acetaminophen/Diphenhydramine 1 Each Tablet, 2 EACH PO Q6H PRN for PAIN-MODERATE (5-7) Prescribed by: YUSEF MOLINA on 12/30/19 164 Clindamycin HCl 300 Mg Capsule, 300 MG PO TID Prescribed by: YUSEF MOLINA on 12/30/19 164 Naproxen 500 Mg Tablet, 500 MG PO BID PRN for PAIN-MODERATE (5-7) Prescribed by: YUSEF MOLINA on 12/30/19 164 Tramadol HCl 50 Mg Tablet, 50 MG PO Q6H PRN for PAIN Prescribed by: TONY GOINS on 01/16/20 5404 Patient Home Medication List Home Medication List Reviewed: Yes Review of Systems Review of Systems Constitutional: no symptoms reported, see HPI Respiratory: see HPI, other (pain with deep inspiration to left chest wall) Cardiovascular: no symptoms reported, see HPI; No chest pain Gastrointestinal: no symptoms reported, see HPI Musculoskeletal: see HPI, muscle pain (right flank and left chest) Skin: see HPI, other (abrasions to left chest laterally and right flank) Psychiatric/Neurological: No Symptoms Reported, See HPI All Other Systems Reviewed Negative Unless Noted: Yes Past Oidhfla-Cbatov-Fdsyrh Hx Past Med/Social Hx: Reviewed Nursing Past Med/Soc Hx Patient Social History Alcohol Use: Denies Use Number of Drinks Today: AA Alcohol Beverage of Choice: Beer Recreational Drug Use: No Drug of Choice: MARIJUANA Smoking Status: Current Someday Smoker Type Used: Cigarettes 2nd Hand Smoke Exposure: Yes Recent Foreign Travel: No Contact w/Someone Who Travel: No Recent Infectious Disease Expo: No Recent Hopitalizations: No Immunizations Up To Date PED Vaccines UTD: Yes Seasonal Allergies Seasonal Allergies: No Past Medical History Surgeries: No Respiratory: No Cardiac: No Neurological: Yes Seizure Disorder Reproductive Disorders: No Gastrointestinal: No Musculoskeletal: No Endocrine: No HEENT: No Cancer: No Psychosocial: No Blood Disorders: No Family Medical History No Pertinent Family Hx Physical Exam Vital Signs Vital Signs - First Documented 01/16/20 01/16/20 14:25 16:10 Temp 36.7 Pulse 104 Resp 20 B/P (MAP) 140/111 (121) Pulse Ox 97 O2 Delivery Room Air Capillary Refill : Less Than 3 Seconds Height, Weight, BMI Height: 6'0" Weight: 160lbs. oz. 72.767226ww; 23.00 BMI Method:Stated General Appearance: WD/WN, no apparent distress HEENT: PERRL/EOMI, normal ENT inspection, TMs normal, pharynx normal Neck: non-tender, full range of motion, supple, normal inspection Cardiovascular: normal peripheral pulses, regular rate, rhythm Respiratory: lungs clear, normal breath sounds, no respiratory distress, no accessory muscle use Gastrointestinal: normal bowel sounds, non tender, soft Back: normal inspection, CVA tenderness (R) Extremities: normal range of motion, non-tender, normal inspection Neurologic/Psychiatric: chemical dependency nurse II-XII nml as tested, no motor/sensory deficits, alert, normal mood/affect, oriented x 3 Skin: normal color, warm/dry Progress/Results/Core Measures Results/Orders My Orders Orders - TONY GOINS Ribs/ Bilateral (01/16/20 14:56) Dipht,Pertuss(Acell),Tet Adult (Boostrix (01/16/20 15:15) Hydrocodone/Apap 5/325 Tablet (Lortab 5 (01/16/20 15:15) Medications Given in ED Current Medications Medications Dose Ordered Sig/Desmond Route Start Time Stop Time Status Last Admin Dose Admin Acetaminophen/ Hydrocodone Bitart 1 tab ONCE ONCE PO 01/16/20 15:15 01/16/20 15:16 DC 01/16/20 15:46 1 TAB Diphtheria/ Tetanus/Acell Pertussis 0.5 ml ONCE ONCE IM 01/16/20 15:15 01/16/20 15:16 DC 01/16/20 15:47 0.5 ML Vital Signs/I&O 01/16/20 01/16/20 14:25 16:10 Temp 36.7 Pulse 104 87 Resp 20 19 B/P (MAP) 140/111 (121) 137/88 (121) Pulse Ox 97 98 O2 Delivery Room Air Room Air Blood Pressure Mean: 121 Progress Progress Note : Time: 15:05 Progress Note Patient seen and evaluated, wound care to both abrasions. Will obtain rib x- rays, hydrocodone for pain. And reevaluate. 1600 rib films show no acute rib fractures and no acute lung changes. Pain improved. Discharge instructions and return precautions reviewed with the patient. Diagnostic Imaging Diagonstic Imaging: Xray Plain Films/CT/US/NM/MRI: other (ribs) Comments NAME: KOLE VARGHESE [facility] REC#: [id number] PT STATUS: REG ER : 1995 PHYSICIAN: TONY GOINS ADMIT DATE: 01/16/20/ER Draft Date of Exam:01/16/20 RIBS/ BILATERAL HISTORY: Left chest and right lateral flank pain. COMPARISON: None TECHNIQUE: Frontal and oblique views of the bilateral ribs. FINDINGS: The lung volumes are normal. No focal consolidation is seen. There is no pleural effusion or pneumothorax. The cardiac silhouette is normal in size. No rib fracture is seen. IMPRESSION: 1. No rib fracture is seen bilaterally. No acute pulmonary abnormality. Dictated on workstation # [id number] Dict: 01/16/20 1525 Trans: 01/16/20 1530 [facility] [id number] Interpreted by: ROBERT GRANT MD Electronically signed by: Reviewed: Reviewed by Me Departure Impression Primary Impression: Fall Qualified Codes: W19.XXXA - Unspecified fall, initial encounter Additional Impression: Rib pain Disposition: HOME, SELF-CARE Condition: Improved Departure-Patient Inst. Decision time for Depature: 15:50 Referrals: NO,LOCAL PHYSICIAN (PCP/Family) Primary Care Physician Patient Instructions: Bruised Rib (DC), Skin Abrasions (DC) Add. Discharge Instructions: Clean wounds with peroxide and apply Neosporin 2-3 times daily. Progress activity as tolerated. Warm, moist compressions to ribs. Alternate between Tylenol 650 mg and ibuprofen 600 mg every 4 hours for pain. Follow-up with your family doctor if symptoms are not improving or worsen. Use the tramadol for more severe pain if not tolerating it with Tylenol and ibuprofen. Return to the emergency department for new, urgent health care needs. All discharge instructions reviewed with patient and/or family. Voiced understanding. Scripts Tramadol HCl (Tramadol HCl) 50 Mg Tablet 50 MG PO Q6H PRN for PAIN, #15 TAB 0 Refills Prov: TONY GOINS 01/16/20 TONY GOINS Jan 16, 2020 15:53
[2020-01-16] MEDS ORDERED: TRM50T PO (15:54)
--- NOTE | 2020-01-16 16:05 | NUR ---
Abrasions cleaned with sterile water et chlorhexidine solution by PCCT. Triple ATX ointment applied to abrasions et left open to air.
[2020-01-16 16:10] VITALS: BP 137/88
--- OUTSIDE RECORDS SUMMARY | 2020-01-16 16:20 | XMS REPORT | Continuity of Care Document ---
Author Author [employer] Organization [employer] Address Unknown Phone Unavailable Allergies Active Description Code Type Severity Reaction Onset Reported/Identified Relationship to Patient Clinical Status Yes Penicillins Drug Allergy N/A N/A 10/29/2008 Yes shimp Food Allergy N/A N/A 10/29/2008 Yes Penicillins Drug Allergy 10/29/2008 Yes shimp Food Allergy 10/29/2008 Yes Penicillins [id number] Drug Aller gy Unknown N/A 03/20/2010 Yes [...] CAND IDIASIS OF SKIN AND NAILS 03/23/2011 CEBALLOS EUN MATTHEWS 112.3 CANDIDIASIS OF SKIN AND NAILS 10/14/2011 462 ACUTE PHARYNGITIS 10/14/2011 LIN MATTHEWSEUN 462 ACUTE PHARYNGITIS 03/08/2013 LIN MATTHEWS EUN Smith V04.81 FLU SHOT 02/21/2015 CHARLIE HERNANDEZ Ot [...] Status Pt. Type Provider Facility Loc./Unit Complaint [id number] 03/08/2013 15:36:00 03/08/2013 23:59: 59 CLS Outpatient LIN EUN MATTHEWS [id number] 04/11/2012 15:55:00 04/11/2012 23:59:5 9 CLS Outpatient [facility] 02/21/2015 19:23:46 ACT Document Registration [id number] 12/30/2019 16:37:00 020 16:50:00 DIS Emergency YUSEF MOLINA APRN [facility] ER DENTAL PAIN [id number] 10/31/2018 10:31:00 019 23:59:59 CLS Preadmit NANDO MEREDITH, PARTH Patel [facility] RAD SEIZURE DISORDER [id number] 01/28/2016 21:11:00 016 21:54:00 DIS Emergency YUSEF MOLINA APRN [facility] ER R FOOT INJ [id number] 07/19/2015 00:13:00 016 00:23:00 DIS Emergency MAJO RAMOS MD [facility] ER DENTAL PAIN [id number] 07/18/2015 19:50:00 016 20:19:00 DIS Emergency YUSEF MOLINA APRN [facility] ER DENTAL PAIN [id number] 02/21/2015 19:23:00 015 22:06:00 DIS Emergency CHARLIE HERNANDEZ [facility] ER SORE THROAT, NECK PAIN, FATIGUE [id number] 01/10/2019 14:40:00 01/10/2019 23:59:5 9 [facility] [id number] 09/02/2018 13:20:00 Document Registration
== END 2020-01-16 16:09 | disposition home or self-care (01) ==
LOC: EDUNIT# 14:06 → ER 14:08
DX: S20.312A Abrasion of left front wall of thorax, initial encounter (principal); S30.811A Abrasion of abdominal wall, initial encounter; R07.81 Pleurodynia; Z88.0 Allergy status to penicillin; F17.210 Nicotine dependence, cigarettes, uncomplicated; W19.XXXA Unspecified fall, initial encounter; Y92.59 Other trade areas as the place of occurrence of the external cause
CPT/HCPCS: 71110; 90715

== ENCOUNTER 2022-02-18 13:57 | Emergency (ER) | payer OTHER ==
[~2022-02-18] VITALS: Ht 182 cm; Wt 64.5 kg
[~2022-02-18 13:57] MED LIST changes: +CLIN-144 PO; -CLIN150C17 PO; +CLIN150C20 PO; -CLIN300C11 PO; +TRM50T PO
--- NOTE | 2022-02-18 14:31 | ED Neurological Problem ---
General Chief Complaint: Neurological Problems Stated Complaint: SEIZURE Nursing Triage Note: ARRIVED POV FROM [facility]. WENT THERE TODAY DUE TO SEIZURES AND HE HAD A SEIZURE WHILE HE WAS THERE AND THEY SENT HIM TO THE ER. STATES HE USE TO HAVE SEIZURES AND THEY STOPPED A WHILE BACK AGO. IS SUPPOSE TO BE ON SEIZURE MEDS BUT HE THOUGHT THEY MADE THEM WORSE SO HE QUIT TAKING THEM. Source: patient Exam Limitations: no limitations History of Present Illness Date Seen by Provider: Feb 18, 2022 Time Seen by Provider: 14:14 Initial Comments This is a well-appearing 26-year-old male who presented to the ER from [facility] for concerns of seizure activity. Patient has a history of s eizures and has follow-up with Dr. Teran in the past. States that he has not been on any seizure medication for the past several years. Over the past 24 hours he reports having 4 tonic seizures. While he was at [facility] for follow-up he had an unwitnessed seizure and was referred to the emergency department. He has multiple rotted broken teeth and is scheduled to see oral surgeon tomorrow for surgical extraction. Allergies and Home Medications Allergies Coded Allergies: Penicillins (Unverified Allergy, Unknown, 03/20/10) Uncoded Allergies: SHRIMP (Allergy, Unknown, 03/20/10) Patient Home Medication List Acetaminophen/Diphenhydramine (Percogesic 325-12.5 mg Tablet) 1 Each Tablet, 2 EACH PO Q6H PRN for PAIN-MODERATE (5-7) Prescribed by: YUSEF MOLINA on 12/30/198 Clindamycin HCl (Clindamycin HCl) 300 Mg Capsule, 300 MG PO TID Prescribed by: YUSEF MOLINA on 12/30/19 164 Naproxen (Naprosyn) 500 Mg Tablet, 500 MG PO BID PRN for PAIN-MODERATE (5-7) Prescribed by: YUSEF MOLINA on 12/30/19 1648 Tramadol HCl (Tramadol HCl) 50 Mg Tablet, 50 MG PO Q6H PRN for PAIN Prescribed by: TONY GOINS on 01/16/20 6802 Past Ygbbwnl-Wdvqkk-Cgrggg Hx Patient Social History Smoking Status: Current Everyday Smoker Substance use?: Yes Substance type: Marijuana Alcohol Use?: No Immunizations Up To Date PED Vaccines UTD: Yes Seasonal Allergies Seasonal Allergies: No Past Medical History Surgeries: No Respiratory: No Cardiac: No Neurological: Yes Seizure Disorder Reproductive Disorders: No Gastrointestinal: No Musculoskeletal: No Endocrine: No HEENT: No Cancer: No Psychosocial: No Blood Disorders: No Family Medical History No Pertinent Family Hx Physical Exam Vital Signs Vital Signs - First Documented 02/18/22 14:00 Temp 36.9 Pulse 79 Resp 16 B/P (MAP) 141/90 (107) Pulse Ox 99 O2 Delivery Room Air Capillary Refill : Less Than 3 Seconds Height, Weight, BMI Height: 6'0" Weight: 160lbs. oz. 72.017501yk; 19.00 BMI Method:Stated Progress/Results/Core Measures Results/Orders Lab Results Laboratory Tests Test 02/18/22 14:50 Range/Units White Blood Count 11.8 H 4.3-11.0 10^3/uL Red Blood Count 5.18 4.30-5.52 10^6/uL Hemoglobin 16.3 13.3-17.7 g/dL Hematocrit 45 40-54 % Mean Corpuscular Volume 87 80-99 fL Mean Corpuscular Hemoglobin 32 25-34 pg Mean Corpuscular Hemoglobin Concent 36 32-36 g/dL Red Cell Distribution Width 11.8 10.0-14.5 % Platelet Count 247 130-400 10^3/uL Mean Platelet Volume 9.7 9.0-12.2 fL Immature Granulocyte % (Auto) 0 % Neutrophils (%) (Auto) 70 42-75 % Lymphocytes (%) (Auto) 21 12-44 % Monocytes (%) (Auto) 5 0-12 % Eosinophils (%) (Auto) 3 0-10 % Basophils (%) (Auto) 1 0-10 % Neutrophils # (Auto) 8.2 H 1.8-7.8 10^3/uL Lymphocytes # (Auto) 2.5 1.0-4.0 10^3/uL Monocytes # (Auto) 0.6 0.0-1.0 10^3/uL Eosinophils # (Auto) 0.4 H 0.0-0.3 10^3/uL Basophils # (Auto) 0.1 0.0-0.1 10^3/uL Immature Granulocyte # (Auto) 0.0 0.0-0.1 10^3/uL Sodium Level 141 135-145 MMOL/L Potassium Level 3.6 3.6-5.0 MMOL/L Chloride Level 104 98-107 MMOL/L Carbon Dioxide Level 24 21-32 MMOL/L Anion Gap 13 5-14 MMOL/L Blood Urea Nitrogen 6 L 7-18 MG/DL Creatinine 0.81 0.60-1.30 MG/DL Estimat Glomerular Filtration Rate 125 BUN/Creatinine Ratio 7 Glucose Level 96 70-105 MG/DL Calcium Level 9.8 8.5-10.1 MG/DL Corrected Calcium 8.5-10.1 MG/DL Total Bilirubin 0.4 0.1-1.0 MG/DL Aspartate Amino Transf (AST/SGOT) 25 5-34 U/L Alanine Aminotransferase (ALT/SGPT) 19 0-55 U/L Alkaline Phosphatase 88 40-136 U/L Total Protein 8.0 6.4-8.2 GM/DL Albumin 4.9 H 3.2-4.5 GM/DL My Orders Orders - LALO TERAN APRN Ed Iv/Invasive Line Start (02/18/22 14:49) Phenytoin Injection (Dilantin Injection) (02/18/22 15:00) Cbc With Automated Diff (02/18/22 14:49) Comprehensive Metabolic Panel (02/18/22 14:49) Fentanyl Inj (Sublimaze Injection) (02/18/22 15:15) Ketorolac Injection (Toradol Injection) (02/18/22 15:15) Medications Given in ED Current Medications Medications Dose Ordered Sig/Desmond Route Start Time Stop Time Status Last Admin Dose Admin Fentanyl Citrate 50 mcg ONCE ONCE IVP 02/18/22 15:15 02/18/22 15:16 DC 02/18/22 15:16 50 MCG Ketorolac Tromethamine 30 mg ONCE ONCE IVP 02/18/22 15:15 02/18/22 15:16 DC 02/18/22 15:16 30 MG Phenytoin Sodium 1000 mg/Sodium Chloride/IV Miscellaneous Supplies 70 ml @ 140 mls/hr ONCE ONCE INJ 02/18/22 15:00 02/18/22 15:29 DC 02/18/22 15:25 140 MLS/HR Vital Signs/I&O 02/18/22 02/18/22 02/18/22 14:00 15:16 15:16 Temp 36.9 36.9 36.9 Pulse 79 Resp 16 B/P (MAP) 141/90 (107) Pulse Ox 99 O2 Delivery Room Air Blood Pressure Mean: 107 Departure Impression Primary Impression: Seizure Disposition: 01 HOME, SELF-CARE Condition: Stable Departure-Patient Inst. Decision time for Depature: 16:15 Referrals: [facility] [place] (PCP/Family) Primary Care Physician Patient Instructions: Seizures, Adult (DC) Add. Discharge Instructions: Plan: 1. Follow up with Dr. Cisneros for maintenance of your Dilantin. You will need to have your Dilantin level checked in one month. 2. You can present to Dr. Ash office for Dilantin recheck or you can use outpatient order provided. 3. Keep follow up tomorrow with your dentist for extraction, as this will help improve your symptoms. 4. Take Dilantin 300mg by mouth at bedtime every night. 5. Return to ER for any new, concerning, or worsening symptoms. All discharge instructions reviewed with patient and/or family. Voiced und erstanding. Scripts Phenytoin Sodium Extended (Dilantin) 100 Mg Capsule 300 MG PO HS for 30 Days, #90 CAP 0 Refills Prov: LALO TERAN HOUSE NURSE 02/18/22 LALO TERAN HOUSE NURSE Feb 18, 2022 14:31
[2022-02-18 14:56] LABS: BASOPHILS # (AUTO) 0.1 10^3/uL (0.0-0.1); BASOPHILS % (AUTO) 1 % (0-10); EOSINOPHILS # (AUTO) 0.4 10^3/uL (0.0-0.3); EOSINOPHILS % (AUTO) 3 % (0-10); HEMATOCRIT 45 % (40-54); HEMOGLOBIN 16.3 g/dL (13.3-17.7); LYMPHOCYTES # (AUTO) 2.5 10^3/uL (1.0-4.0); LYMPHOCYTES % (AUTO) 21 % (12-44); MEAN CORPUSCULAR HEMOGLOBIN 32 pg (25-34); MEAN CORPUSCULAR HGB CONC 36 g/dL (32-36); MEAN CORPUSCULAR VOLUME 87 fL (80-99); MEAN PLATELET VOLUME 9.7 fL (9.0-12.2); MONOCYTES # (AUTO) 0.6 10^3/uL (0.0-1.0); MONOCYTES % (AUTO) 5 % (0-12); NEUTROPHILS # (AUTO) 8.2 10^3/uL (1.8-7.8); NEUTROPHILS % (AUTO) 70 % (42-75); PLATELET COUNT 247 10^3/uL (130-400); WHITE BLOOD COUNT 11.8 10^3/uL (4.3-11.0)
[2022-02-18] MEDS ORDERED: PHENYTOIN INJECTION 1,000 MG in NS (IVPB) 50 ML, 0.2 MICRON FILTER 1 EACH INJ ONE ×3 (15:00)
[2022-02-18 15:05] LABS: ALBUMIN 4.9 GM/DL (3.2-4.5)
[2022-02-18 15:06] LABS: CHLORIDE 104 MMOL/L (98-107); POTASSIUM 3.6 MMOL/L (3.6-5.0); SODIUM 141 MMOL/L (135-145)
[2022-02-18 15:07] LABS: CALCIUM 9.8 MG/DL (8.5-10.1)
[2022-02-18 15:08] LABS: GLUCOSE 96 MG/DL (70-105)
[2022-02-18 15:09] LABS: CARBON DIOXIDE 24 MMOL/L (21-32)
[2022-02-18 15:10] LABS: BILIRUBIN,TOTAL 0.4 MG/DL (0.1-1.0)
[2022-02-18 15:11] LABS: ALKALINE PHOSPHATASE 88 U/L (40-136); CREATININE SERUM 0.81 MG/DL (0.60-1.30); GFR ESTIMATED 125
[2022-02-18 15:13] LABS: BUN/CREATININE RATIO 7
[2022-02-18 15:14] LABS: ALANINE AMINOTRANSFERASE 19 U/L (0-55)
[2022-02-18] MEDS ORDERED: fentaNYL INJ 100 MCG/2 ML AMP IVP ONE (15:15)
[2022-02-18] MEDS ORDERED: KETOROLAC 30 MG/ML VIAL IVP ONE (15:15)
[2022-02-18] MEDS ORDERED: PHEN100C4 PO (16:20)
[2022-02-18 16:26] VITALS: BP 122/66
== END 2022-02-18 16:26 | disposition home or self-care (01) ==
LOC: EDUNIT# 13:57 → ER 14:00
DX: G40.909 Epilepsy, unspecified, not intractable, without status epilepticus (principal); F17.200 Nicotine dependence, unspecified, uncomplicated; Z28.310 Unvaccinated for COVID-19
CPT/HCPCS: 36415; 80053; 85025

== ENCOUNTER 2022-03-01 12:34 | Emergency (ER) | payer SELFPAY ==
[~2022-03-01] VITALS: Ht 182 cm; Wt 67.9 kg
[~2022-03-01 12:34] MED LIST changes: +PHEN100C4 PO
[2022-03-01 12:40] VITALS: BP 149/90
[2022-03-01] MEDS ORDERED: KETOROLAC 60 MG/2 ML VIAL IM ONE (13:00)
--- NOTE | 2022-03-01 13:02 | ED EENT ---
History of Present Illness General Chief Complaint: Dental Problems/Pain Stated Complaint: DENTAL PAIN Nursing Triage Note: ARRIVED VIA AMB TO TRIAGE WITH CONTINUED BILAT DENTAL PAIN. STATES HE IS OUT OF HIS ABX AND CAN'T GET INTO A ORAL SURGEON UNTIL MAY. WENT TO [facility] THIS AM WHO DID NOTHING FOR HIM. History of Present Illness Date Seen by Provider: Mar 01, 2022 Time Seen by Provider: 12:50 Initial Comments Patient is a 26 yo M who presents to the ED for dental pain. He states he is supposed to follow-up with an oral surgeon for removal of several teeth. He was seen at an OSH on Wednesday for these symptoms and was placed on clindamycin and was given an rx for hydrocodone. He was seen here on Wednesday when he had a witnessed seizure in the clinic and was transported here. He had been off his seizure medication for several years and he was given a dilantin load and was discharged home with the same. He has had no further seizures. He did follow-up and reportedly has a head CT ordered as an outpatient in the near future. His primary concern at this time is the dental pain. He finished the last of his clindamycin earlier today. He denies any significant gum or facial swelling. No difficulty swallowing. No muffled voice or trismus. He states he is having issues finding a dental provider to extract his teeth due to insurance limitations. Timing/Duration: other (2 weeks ago) Severity: moderate Location: dental Associated Symptoms: No drooling, No facial pain/swelling, No fever; tooth pain; No voice change Allergies and Home Medications Allergies Coded Allergies: Penicillins (Unverified Allergy, Unknown, 03/20/10) Uncoded Allergies: SHRIMP (Allergy, Unknown, 03/20/10) Patient Home Medication List Home Medication List Reviewed: Yes Acetaminophen/Diphenhydramine (Percogesic 325-12.5 mg Tablet) 1 Each Tablet, 2 EACH PO Q6H PRN for PAIN-MODERATE (5-7) Prescribed by: YUSEF MOLINA on 12/30/191647 Clindamycin HCl (Clindamycin HCl) 300 Mg Capsule, 300 MG PO TID Prescribed by: YUSEF MOLINA on 12/30/191647 Naproxen (Naprosyn) 500 Mg Tablet, 500 MG PO BID PRN for PAIN-MODERATE (5-7) Prescribed by: YUSEF MOLINA on 8/1/20 1648 Phenytoin Sodium Extended (Dilantin) 100 Mg Capsule, 300 MG PO HS Prescribed by: LALO FINN on 02/18/22 1620 Tramadol HCl (Tramadol HCl) 50 Mg Tablet, 50 MG PO Q6H PRN for PAIN Prescribed by: TONY GOINS on 01/16/20 1555 Review of Systems Review of Systems Constitutional: no symptoms reported Eyes: No Symptoms Reported Ears: No Symptoms Reported Nose: no symptoms reported Mouth: pain Throat: no symptoms reported Respiratory: no symptoms reported Cardiovascular: no symptoms reported Past Teivuzk-Ugosda-Fpyogo Hx Patient Social History Tobacco Use?: Yes Smoking Status: Current Everyday Smoker Smokeless Tobacco Frequency: Current Everyday User Substance use?: Yes Substance type: Marijuana Alcohol Use?: No Immunizations Up To Date PED Vaccines UTD: Yes Seasonal Allergies Seasonal Allergies: No Past Medical History Surgeries: No Respiratory: No Cardiac: No Neurological: Yes Seizure Disorder Reproductive Disorders: No Gastrointestinal: No Musculoskeletal: No Endocrine: No HEENT: No Cancer: No Psychosocial: No Blood Disorders: No Family Medical History No Pertinent Family Hx Physical Exam Vital Signs Vital Signs - First Documented 03/01/22 12:40 Temp 37.0 Pulse 77 Resp 16 B/P (MAP) 149/90 (109) Pulse Ox 98 O2 Delivery Room Air Height, Weight, BMI Height: 6'0" Weight: 160lbs. oz. 72.611497ud; 20.00 BMI Method:Stated General Appearance: WD/WN, no apparent distress Mouth/Throat: dental tenderness; No mandibular swelling, No maxillary swelling Neck: non-tender, full range of motion, supple, normal inspection Progress/Results/Core Measures Results/Orders My Orders Orders - VIVIAN WILCOX APRN Ketorolac Injection (Toradol Injection) (03/01/22 13:00) Vital Signs/I&O 03/01/22 12:40 Temp 37.0 Pulse 77 Resp 16 B/P (MAP) 149/90 (109) Pulse Ox 98 O2 Delivery Room Air Blood Pressure Mean: 109 Progress Progress Note : Progress Note Patient is nontoxic and well hydrated on exam. Oral exam notable for significant dental decay of multiple teeth. Multiple fractured teeth also noted. No significant gum or facial swelling appreciated. No trismus noted. No indication for further antibiotics at this time. Will give IM injection of ketorolac. Will d/c home with rx for the same. Discussed need for definitive care from a dental provider. Return precautions for urgent symptomology discussed. Patient verbalized understanding. Departure Impression Primary Impression: Dental caries Additional Impression: Pain due to dental caries Disposition: HOME, SELF-CARE Condition: Stable Departure-Patient Inst. Decision time for Depature: 13:00 Referrals: [facility] (PCP/Family) Primary Care Physician Patient Instructions: Tooth Decay ED, Dental Pain (DC) Scripts Ketorolac Tromethamine (Ketorolac Tromethamine) 10 Mg Tablet 10 MG PO Q6H for 15 Days, #15 TAB Prov: VIVIAN WILCOX APRN 03/01/22 VIVIAN WILCOX APRN Mar 01, 2022 13:02
[2022-03-01] MEDS ORDERED: KETO10TA PO (13:08)
== END 2022-03-01 13:10 | disposition home or self-care (01) ==
LOC: EDUNIT# 12:34 → ER 12:37
DX: K02.9 Dental caries, unspecified (principal); F17.200 Nicotine dependence, unspecified, uncomplicated; Z28.310 Unvaccinated for COVID-19
CPT/HCPCS: 99282

== ENCOUNTER 2022-03-05 05:42 | Emergency (ER) | payer SELFPAY ==
[~2022-03-05 05:42] MED LIST changes: +KETO10TA PO
--- NOTE | 2022-03-05 06:50 | ED General ---
General Chief Complaint: Neurological Problems Stated Complaint: SEIZURE,PT STS FELL & HIT HEAD Nursing Triage Note: TO ED VIA POV AND AMBULATORY TO ROOM 5 WITH C/O MX SEIZURES RECENTLY AFTER STARTING DILANTIN IN . LAST SEIZURE THIS AM APPROX [id number] THAT WAS WITNESSED AND LASTED APPROX 2-3 MINUTES. PT WAS SEEN AT [facility] Wednesday03/02/[address] OF HEAD AND WAS TOLD READING SHOWED A SINUS INFECTION. Source of Information: Patient Exam Limitations: No Limitations History of Present Illness Date Seen by Provider: Mar 05, 2022 Time Seen by Provider: 06:30 Initial Comments Patient is a 27-year-old male who presents to the emergency department today with a chief complaint of seizure this morning around 4to 5 AM. Patient states that he woke up and felt like his jaw was "locking". subsequently had a seizure. no tongue biting or joint pains - did hit his head. No incontinence. He has been fighting dental pain chronically for years. Is followed through [facility] and is being referred to an oral surgeon for dental extraction. He states he does not sleep well at night due to the pain. He was started on Dilantin at the end of January. Patient states that he is compliant with his Dilantin. He is waiting for referral to [facility] for neurology evaluation. He states he feels like his seizures have gotten more severe/frequent since starting the Dilantin. He states his eyes are light sensitive. No associated fevers, he has occasional chills he has body aches. No complaints of shortness of breath or productive cough. He does have some anterior left-sided chest pain with deep inspiration. No recent trauma. No associated shortness of breath, nausea or diaphoresis. Family medical history unknown secondary to adoption. States he currently does have a little bit of left anterior chest pain. Reproduced with h is deep breathing. All other ROS reviewed and neg except as stated. Timing/Duration: 1-3 Hours Severity: Moderate Associated Systoms: Loss of Appetite, Malaise Allergies and Home Medications Allergies Coded Allergies: Penicillins (Unverified Allergy, Unknown, 03/20/10) tramadol (Verified Allergy, Unknown, 03/05/22) Uncoded Allergies: SHRIMP (Allergy, Unknown, 03/20/10) Patient Home Medication List Home Medication List Reviewed: Yes Acetaminophen/Diphenhydramine (Percogesic 325-12.5 mg Tablet) 1 Each Tablet, 2 EACH PO Q6H PRN for PAIN-MODERATE (5-7) Prescribed by: YUSEF MOLINA on 12/30/19 1648 Clindamycin HCl (Clindamycin HCl) 300 Mg Capsule, 300 MG PO TID Prescribed by: YUSEF MOLINA on 12/30/19 1648 Ketorolac Tromethamine (Ketorolac Tromethamine) 10 Mg Tablet, 10 MG PO Q6H Prescribed by: Cholo Humphries on 03/01/22 1308 Naproxen (Naprosyn) 500 Mg Tablet, 500 MG PO BID PRN for PAIN-MODERATE (5-7) Prescribed by: YUSEF MOLINA on 12/30/19 1648 Phenytoin Sodium Extended (Dilantin) 100 Mg Capsule, 300 MG PO HS Prescribed by: LALO FINN on 02/18/22 1620 Tramadol HCl (Tramadol HCl) 50 Mg Tablet, 50 MG PO Q6H PRN for PAIN Prescribed by: TONY GOINS on 01/16/20 1555 Review of Systems Review of Systems Constitutional: see HPI EENTM: other (dental pain) Respiratory: no symptoms reported Cardiovascular: chest pain, other (pain with deep breath) Gastrointestinal: loss of appetite Genitourinary: no symptoms reported Musculoskeletal: joint pain (right hip) Skin: no symptoms reported Psychiatric/Neurological: Seizure All Other Systems Reviewed Negative Unless Noted: Yes Past Tlkfwrq-Kijbza-Uebflq Hx Patient Social History Tobacco Use?: Yes Tobacco type used: Cigarettes Smoking Status: Current Everyday Smoker Substance use?: Yes Substance type: Marijuana Additional substance use comme: STATES LAST USE WAS 2-3 WEEKS AGO Alcohol Use?: No Pt feels they are or have been: No Immunizations Up To Date PED Vaccines UTD: Yes Influenza Vaccine Up-to-Date: No; Not Current Seasonal Allergies Seasonal Allergies: No Past Medical History Surgeries: No Respiratory: No Cardiac: No Neurological: Yes Seizure Disorder Reproductive Disorders: No Gastrointestinal: No Musculoskeletal: No Endocrine: No HEENT: No Cancer: No Psychosocial: No Blood Disorders: No Family Medical History No Pertinent Family Hx Physical Exam Vital Signs Vital Signs - First Documented 03/05/22 05:59 Temp 36.3 Pulse 79 Resp 16 B/P (MAP) 132/92 (105) Pulse Ox 99 O2 Delivery Room Air Capillary Refill : Less Than 3 Seconds Height, Weight, BMI Height: 6'0" Weight: 160lbs. oz. 72.639364ol; 20.00 BMI Method:Stated General Appearance: No Apparent Distress, WD/WN, Thin Eyes: Bilateral Eye Normal Inspection, Bilateral Eye PERRL, Bilateral Eye EOMI HEENT: PERRL/EOMI, Pharynx Normal, Other (multiple necrotic teth to the gum line right lower posterior - no gingival swelling, erythema or fluctuance) Neck: Full Range of Motion, Normal Inspection, Supple Respiratory: Lungs Clear, Normal Breath Sounds, No Accessory Muscle Use, No Respiratory Distress, Other (tenderness to palpation left anterior chest wall - lower - patient states this is the pain he has been feeling) Cardiovascular: Regular Rate, Rhythm, Normal Peripheral Pulses Gastrointestinal: Non Tender, Soft Extremity: Normal Capillary Refill, Normal Inspection, Normal Range of Motion, No Pedal Edema Neurologic/Psychiatric: Alert, Oriented x3, No Motor/Sensory Deficits, Normal Mood/Affect, 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 Norm as Tested Skin: Normal Color, Warm/Dry; No Rash Progress/Results/Core Measures Suspected Sepsis SIRS Temperature: Pulse: 79 Respiratory Rate: 16 Blood Pressure 132 /92 Mean: 105 Results/Orders Lab Results Laboratory Tests Test 03/05/22 06:58 Range/Units Phenytoin (Dilantin) Level 4.9 L 10.0-20.0 ug/mL My Orders Orders - LYN NEWMAN MD Ekg Tracing (03/05/22 06:35) Dilantin (Phenytoin) (03/05/22 06:35) Vital Signs/I&O 03/05/22 03/05/22 05:59 07:54 Temp 36.3 36.3 Pulse 79 79 Resp 16 16 B/P (MAP) 132/92 (105) 132/92 Pulse Ox 99 99 O2 Delivery Room Air Room Air Capillary Refill : Less Than 3 Seconds Blood Pressure Mean: 105 ECG Initial ECG Impression Date: Mar 05, 2022 Initial ECG Impression Time: 07:00 Initial ECG Rhythm: Normal Sinus Initial ECG Impression: Normal Comment Dffuse mild ST elevation - no chronic, ongoing CP. No STEMI Departure Impression Primary Impression: Seizure Additional Impression: Chronic dental pain Disposition: 01 HOME, SELF-CARE Condition: Stable Departure-Patient Inst. Decision time for Depature: 06:51 Referrals: [facility] (PCP/Family) Primary Care Physician Patient Instructions: Dental Pain ED, Seizures, Adult ED Add. Discharge Instructions: Take 1g of tylenol with 400-600mg of ibuprofen every 6-8 hours (2-3 over the counter pills) as needed for pain. The combination will be much more effective than just either alone. A good oral Listerine rinse will help with inflammation for your dental pain as well. Always take ibuprofen with food. If you have swelling in your face or fever please return to the Emergency Depa rtment for re-evaluation. Continue your Dilantin nightly as prescribed. Ideally the combination of the tylenol and ibuprofen will help your pain and decrease your number of seizures. The level will be back in 24-49 hours. We will call you if it is abnormal. Please reach out to [facility] about your referral or as at [facility]. Copy Copies To 1: EUN CEBALLOS KATHRYN M MD Mar 05, 2022 06:50
[2022-03-05 07:54] VITALS: BP 132/92
== END 2022-03-05 07:54 | disposition home or self-care (01) ==
LOC: EDUNIT# 05:42 → ER 05:46
DX: G40.909 Epilepsy, unspecified, not intractable, without status epilepticus (principal); K08.89 Other specified disorders of teeth and supporting structures; G89.29 Other chronic pain; F17.210 Nicotine dependence, cigarettes, uncomplicated; Z28.310 Unvaccinated for COVID-19
CPT/HCPCS: 36415; 80185; 93005

== ENCOUNTER 2022-03-10 19:14 | Emergency (ER) | payer SELFPAY ==
--- NOTE | 2022-03-10 20:11 | ED EENT ---
History of Present Illness General Chief Complaint: Dental Problems/Pain Stated Complaint: ABSCESS TOOTH Nursing Triage Note: PT AMB TO FT WITH C/O BILAT WISDOM TEETH PAIN XWEEKS. PT STATES HE NEEDS 11 TEETH PULLED BUT IS HAVING TROUBLE FINDING AN ORAL SURGERON. Source: patient Exam Limitations: no limitations History of Present Illness Date Seen by Provider: Mar 10, 2022 Time Seen by Provider: 20:09 Initial Comments This is a 27-year-old male who presented to the ER with concerns of right upper tooth abscess. States that he needs oral surgery to have 11 teeth removed. He had initially attempted to follow with oral surgeon in [place] but was informed he would need to wait until May. he is currently working with [facility] for insurance and plans to follow-up in [place], ref erral has already been made. States that he has had multiple abscesses and this feels the same as the last time he started to develop an abscess. He has multiple broken and rotted teeth. No fever, chills, nausea, vomiting, diarrhea, abdominal pain. Allergies and Home Medications Allergies Coded Allergies: Penicillins (Unverified Allergy, Unknown, 03/20/10) tramadol (Verified Allergy, Unknown, 03/05/22) Uncoded Allergies: SHRIMP (Allergy, Unknown, 03/20/10) Patient Home Medication List Home Medication List Reviewed: Yes Acetaminophen/Diphenhydramine (Percogesic 325-12.5 mg Tablet) 1 Each Tablet, 2 EACH PO Q6H PRN for PAIN-MODERATE (5-7) Prescribed by: YUSEF MOLINA on 12/30/191647 Chlorhexidine Gluconate (Chlorhexidine Gluconate) 0.12 % Mouthwash, 15 ML MM BID Prescribed by: LALO FINN on 03/10/222033 Clindamycin HCl (Clindamycin HCl) 300 Mg Capsule, 300 MG PO TID Prescribed by: LALO FINN on 03/10/222033 Ketorolac Tromethamine (Ketorolac Tromethamine) 10 Mg Tablet, 10 MG PO Q6H Prescribed by: Cholo Humphries on 03/01/22 1308 Naproxen (Naprosyn) 500 Mg Tablet, 500 MG PO BID PRN for PAIN-MODERATE (5-7) Prescribed by: YUSEF MOLINA on 12/30/19 164 Phenytoin Sodium Extended (Dilantin) 100 Mg Capsule, 300 MG PO HS Prescribed by: LALO FINN on 02/18/22 1620 Tramadol HCl (Tramadol HCl) 50 Mg Tablet, 50 MG PO Q6H PRN for PAIN Prescribed by: TONY GOINS on 01/16/20 1555 Review of Systems Review of Systems Constitutional: see HPI Past Cewslbx-Hqtnob-Nkkrpb Hx Patient Social History Tobacco Use?: No Smoking Status: Former Smoker Use of E-Cig and/or Vaping dev: No Use of E-Cig and/or Vaping Luan: Former User Substance use?: No Alcohol Use?: No Pt feels they are or have been: No Immunizations Up To Date PED Vaccines UTD: Yes Influenza Vaccine Up-to-Date: No; Not Current Seasonal Allergies Seasonal Allergies: No Past Medical History Surgery/Hospitalization HX: SEIZURES Surgeries: No Respiratory: No Cardiac: No Neurological: Yes Seizure Disorder Reproductive Disorders: No Gastrointestinal: No Musculoskeletal: No Endocrine: No HEENT: No Cancer: No Psychosocial: No Blood Disorders: No Family Medical History No Pertinent Family Hx Physical Exam Vital Signs Vital Signs - First Documented 03/10/22 19:27 Temp 36.2 Pulse 91 Resp 16 B/P (MAP) 147/87 (107) Height, Weight, BMI Height: 6'0" Weight: 160lbs. oz. 72.570629df; 20.00 BMI Method:Stated General Appearance: WD/WN, no apparent distress Eyes: bilateral eye normal inspection, bilateral eye PERRL, bilateral eye EOMI Nose: normal inspection; No discharge Mouth/Throat: dental tenderness (Right upper molar, multiple broken, rotted teeth. ); No mandibular swelling, No maxillary swelling Neck: full range of motion, normal inspection Cardiovascular: regular rate, rhythm, no murmur Respiratory: lungs clear, normal breath sounds, no respiratory distress, no acc essory muscle use Gastrointestinal: normal bowel sounds, non tender, soft Neurologic/Psychiatric: no motor/sensory deficits, alert, normal mood/affect, oriented x 3 Skin: normal color, warm/dry Progress/Results/Core Measures Results/Orders Vital Signs/I&O Blood Pressure Mean: 107 Departure Impression Primary Impression: Chronic dental pain Additional Impression: Dental caries Disposition: 01 HOME, SELF-CARE Condition: Improved Departure-Patient Inst. Decision time for Depature: 20:10 Referrals: [facility] (PCP/Family) Primary Care Physician Patient Instructions: Dental Pain ED Add. Discharge Instructions: Plan: 1. Use Chlorhexadine mouth wash twice a day, rinse and spit. 2. All discharge instructions reviewed with patient and/or family. Voiced unde rstanding. Scripts Chlorhexidine Gluconate (Chlorhexidine Gluconate) 0.12 % Mouthwash 15 ML MM BID for 30 Days, #473 ML 1 Refill Prov: LALO FINN TOPPIECE CUTTER 03/10/22 Clindamycin HCl (Clindamycin HCl) 300 Mg Capsule 300 MG PO TID, #21 CAP Prov: LALO FINN TOPPIECE CUTTER 03/10/22 LALO FINN APRN Mar 10, 2022 20:11
[2022-03-10] MEDS ORDERED: NFCHLORHGL MM (20:34)
[2022-03-10] MEDS ORDERED: CLIN-144 PO (20:34)
[2022-03-10 20:43] VITALS: BP 137/84
== END 2022-03-10 20:42 | disposition home or self-care (01) ==
LOC: EDUNIT# 19:14 → ER 19:17
DX: K02.9 Dental caries, unspecified (principal); G89.29 Other chronic pain; Z87.891 Personal history of nicotine dependence; Z28.310 Unvaccinated for COVID-19
CPT/HCPCS: 99282

== ENCOUNTER 2022-03-12 11:00 | Emergency (ER) | payer SELFPAY ==
[~2022-03-12] VITALS: Ht 176 cm; Wt 68.0 kg
[~2022-03-12 11:00] MED LIST changes: +NFCHLORHGL MM
[2022-03-12] MEDS ORDERED: DIVA-74 PO (11:10)
[2022-03-12] MEDS ORDERED: DIAZ2TAB2 PO (11:10)
--- NOTE | 2022-03-12 11:10 | ED General ---
General Chief Complaint: Neurological Problems Stated Complaint: SEIZURE Nursing Triage Note: PT TO RM [facility] WITH CC OF SEIZURE, RECENT DENTAL INFECTION, SISTER STATES SEIZURES HAVE BEEN MORE OFTEN SINCE DENTAL INFECTION. PT STATES 14 SEIZURES IN THE LAST WEEK Source of Information: Patient Exam Limitations: No Limitations History of Present Illness Date Seen by Provider: Mar 12, 2022 Time Seen by Provider: 10:58 Initial Comments 27-year-old male with history of seizure disorder on Depakote, phenytoin and diazepam presents for seizure. He states he had about 14 seizures over the last couple of weeks and believes they are lasting a little bit longer. He has not seen a neurologist outside of his initial EEG. He is unsure what the EEG results showed. Denies any fevers or chills. No injuries from the seizure. He is currently on antibiotics for dental infection. Allergies and Home Medications Allergies Coded Allergies: Penicillins (Unverified Allergy, Unknown, 03/20/10) tramadol (Verified Allergy, Unknown, 03/05/22) Uncoded Allergies: SHRIMP (Allergy, Unknown, 03/20/10) Patient Home Medication List Home Medication List Reviewed: Yes Chlorhexidine Gluconate (Chlorhexidine Gluconate) 0.12 % Mouthwash, 15 ML MM BID Prescribed by: LALO FINN on 03/10/222033 Last Action: Last Taken Edited Clindamycin HCl (Clindamycin HCl) 300 Mg Capsule, 300 MG PO TID Prescribed by: LALO FINN on 03/10/222033 Last Action: Last Taken Edited Diazepam (Diazepam) 2 Mg Tablet, 2 MG PO HS, (Reported) Entered as Reported by: MYLES FELTON on 03/12/221109 Last Action: New Order Divalproex Sodium (Divalproex Sodium) 250 Mg Tablet.dr, 250 MG PO BID PRN, (Reported) Entered as Reported by: MYLES FELTON on 03/12/221109 Last Action: New Order Naproxen (Naprosyn) 500 Mg Tablet, 500 MG PO BID PRN for PAIN-MODERATE (5-7) Prescribed by: YUSEF MOLINA on 12/30/19 1648 Phenytoin Sodium Extended (Dilantin) 100 Mg Capsule, 300 MG PO HS Prescribed by: LALO FINN on 02/18/22 1620 Last Action: Last Taken Edited Tramadol HCl (Tramadol HCl) 50 Mg Tablet, 50 MG PO Q6H PRN for PAIN Prescribed by: TONY GOINS on 01/16/20 1555 Last Action: Last Taken Edited Discontinued Medications Acetaminophen/Diphenhydramine (Percogesic 325-12.5 mg Tablet) 1 Each Tablet, 2 EACH PO Q6H PRN for PAIN-MODERATE (5-7) Discontinued Reason: No Longer Taking Prescribed by: YUSEF MOLINA on 12/30/19 1648 Last Action: Discontinued Ketorolac Tromethamine (Ketorolac Tromethamine) 10 Mg Tablet, 10 MG PO Q6H Discontinued Reason: No Longer Taking Prescribed by: Cholo Humphries on 03/01/22 1308 Last Action: Discontinued Review of Systems Review of Systems Constitutional: no symptoms reported EENTM: no symptoms reported Respiratory: no symptoms reported Cardiovascular: no symptoms reported Gastrointestinal: no symptoms reported Genitourinary: no symptoms reported Musculoskeletal: no symptoms reported Skin: no symptoms reported Psychiatric/Neurological: Seizure Hematologic/Lymphatic: No Symptoms Reported Immunological/Allergic: no symptoms reported Past Jjbscmd-Wxmljo-Elppev Hx Patient Social History Tobacco Use?: Yes Substance use?: Yes Substance type: Marijuana Alcohol Use?: Yes Immunizations Up To Date PED Vaccines UTD: Yes Seasonal Allergies Seasonal Allergies: No Past Medical History Surgery/Hospitalization HX: SEIZURES Surgeries: No Respiratory: No Cardiac: No Neurological: Yes Seizure Disorder Reproductive Disorders: No Gastrointestinal: No Musculoskeletal: No Endocrine: No HEENT: No Cancer: No Psychosocial: No Blood Disorders: No Family Medical History Reviewed Nursing Family Hx No Pertinent Family Hx Physical Exam Vital Signs Vital Signs - First Documented 03/12/22 11:02 Temp 36.9 Pulse 78 Resp 18 B/P (MAP) 134/94 (107) Pulse Ox 97 O2 Delivery Room Air Capillary Refill : Less Than 3 Seconds Height, Weight, BMI Height: 6'0" Weight: 160lbs. oz. 72.737782qv; 21.00 BMI Method:Stated General Appearance: No Apparent Distress, WD/WN HEENT: PERRL/EOMI, TMs Normal, Normal ENT Inspection, Pharynx Normal Neck: Full Range of Motion, Normal Inspection, Non Tender, Supple Respiratory: Chest Non Tender, Lungs Clear, Normal Breath Sounds, No Accessory Muscle Use, No Respiratory Distress Cardiovascular: Regular Rate, Rhythm, No Edema, No Gallop, No JVD, No Murmur, Normal Peripheral Pulses Gastrointestinal: Normal Bowel Sounds, No Organomegaly, Non Tender, Soft Back: Normal Inspection, No CVA Tenderness, No Vertebral Tenderness Extremity: Normal Capillary Refill, Normal Inspection, Normal Range of Motion, Non Tender, No Calf Tenderness Neurologic/Psychiatric: Alert, Oriented x3, No Motor/Sensory Deficits, Normal Mood/Affect, engine specialist II-XII Norm as Tested Skin: Normal Color, Warm/Dry Lymphatic: No Adenopathy Progress/Results/Core Measures Suspected Sepsis SIRS Temperature: Pulse: 78 Respiratory Rate: 18 Laboratory Tests 03/12/22 11:18: White Blood Count 6.1 Blood Pressure 134 /94 Mean: 107 Laboratory Tests 03/12/22 11:18: Creatinine 0.69, Platelet Count 259 Results/Orders Lab Results Laboratory Tests Test 03/12/22 11:18 Range/Units White Blood Count 6.1 4.3-11.0 10^3/uL Red Blood Count 5.19 4.30-5.52 10^6/uL Hemoglobin 16.2 13.3-17.7 g/dL Hematocrit 45 40-54 % Mean Corpuscular Volume 87 80-99 fL Mean Corpuscular Hemoglobin 31 25-34 pg Mean Corpuscular Hemoglobin Concent 36 32-36 g/dL Red Cell Distribution Width 11.4 10.0-14.5 % Platelet Count 259 130-400 10^3/uL Mean Platelet Volume 9.8 9.0-12.2 fL Immature Granulocyte % (Auto) 0 % Neutrophils (%) (Auto) 65 42-75 % Lymphocytes (%) (Auto) 26 12-44 % Monocytes (%) (Auto) 6 0-12 % Eosinophils (%) (Auto) 2 0-10 % Basophils (%) (Auto) 1 0-10 % Neutrophils # (Auto) 4.0 1.8-7.8 10^3/uL Lymphocytes # (Auto) 1.6 1.0-4.0 10^3/uL Monocytes # (Auto) 0.4 0.0-1.0 10^3/uL Eosinophils # (Auto) 0.1 0.0-0.3 10^3/uL Basophils # (Auto) 0.0 0.0-0.1 10^3/uL Immature Granulocyte # (Auto) 0.0 0.0-0.1 10^3/uL Sodium Level 137 135-145 MMOL/L Potassium Level 3.9 3.6-5.0 MMOL/L Chloride Level 106 98-107 MMOL/L Carbon Dioxide Level 24 21-32 MMOL/L Anion Gap 7 5-14 MMOL/L Blood Urea Nitrogen 9 7-18 MG/DL Creatinine 0.69 0.60-1.30 MG/DL Estimat Glomerular Filtration Rate 130 BUN/Creatinine Ratio 13 Glucose Level 90 70-105 MG/DL Calcium Level 9.5 8.5-10.1 MG/DL Valproic Acid (Depakene) Level 26.5 L 50.0-100.0 UG/ML My Orders Orders - EDDIEJAELYNBill Armstrong DO Dilantin (Phenytoin) (03/12/22 11:07) Valproic Acid (03/12/22 11:07) Cbc With Automated Diff (03/12/22 11:07) Basic Metabolic Panel (03/12/22 11:07) Vital Signs/I&O 03/12/22 03/12/22 11:02 12:09 Temp 36.9 36.9 Pulse 78 73 Resp 18 18 B/P (MAP) 134/94 (107) 124/77 Pulse Ox 97 97 O2 Delivery Room Air APAP Capillary Refill : Less Than 3 Seconds Blood Pressure Mean: 107 Departure Communication (Admissions) Patient has longstanding history of seizure. He was wondering when he was able to get a hold of neurology and has appointment tomorrow. Levels are slightly low and advised him to discuss this with him. He is discharged in stable condition with supportive care. Impression Primary Impression: Seizure Disposition: 01 HOME, SELF-CARE Condition: Stable Departure-Patient Inst. Referrals: [facility] (PCP/Family) Primary Care Physician Patient Instructions: Seizures, Adult (DC) Add. Discharge Instructions: Your Depakote levels are low. Recommend follow-up with your primary care physician for recommendations on possible change in your dose. Continue to work towards getting a neurology appointment. I have given you the name of someone with a you may try to call and schedule with, contact is listed below. Return to the emergency department for any severe concerns Elizabeth Chang MD, FAAN [email or web address] [place] [address], MADHAVI Quintanilla [phone] All discharge instructions reviewed with patient and/or family. Voiced understanding. JUSTINE MORGAN DO Mar 12, 2022 11:10
[2022-03-12 11:20] LABS: BASOPHILS % (AUTO) 1 % (0-10); EOSINOPHILS # (AUTO) 0.1 10^3/uL (0.0-0.3); EOSINOPHILS % (AUTO) 2 % (0-10); HEMATOCRIT 45 % (40-54); HEMOGLOBIN 16.2 g/dL (13.3-17.7); LYMPHOCYTES # (AUTO) 1.6 10^3/uL (1.0-4.0); LYMPHOCYTES % (AUTO) 26 % (12-44); MEAN CORPUSCULAR HEMOGLOBIN 31 pg (25-34); MEAN CORPUSCULAR HGB CONC 36 g/dL (32-36); MEAN CORPUSCULAR VOLUME 87 fL (80-99); MEAN PLATELET VOLUME 9.8 fL (9.0-12.2); MONOCYTES # (AUTO) 0.4 10^3/uL (0.0-1.0); MONOCYTES % (AUTO) 6 % (0-12); NEUTROPHILS % (AUTO) 65 % (42-75); PLATELET COUNT 259 10^3/uL (130-400); WHITE BLOOD COUNT 6.1 10^3/uL (4.3-11.0)
[2022-03-12 11:36] LABS: POTASSIUM 3.9 MMOL/L (3.6-5.0)
[2022-03-12 11:37] LABS: CALCIUM 9.5 MG/DL (8.5-10.1)
[2022-03-12 11:42] LABS: CREATININE SERUM 0.69 MG/DL (0.60-1.30)
[2022-03-12 11:50] LABS: VALPROIC ACID 26.5 UG/ML (50.0-100.0)
[2022-03-12 12:09] VITALS: BP 124/77
== END 2022-03-12 12:08 | disposition home or self-care (01) ==
LOC: EDUNIT# 11:00 → ER 11:01
DX: G40.909 Epilepsy, unspecified, not intractable, without status epilepticus (principal); K04.7 Periapical abscess without sinus; Z72.0 Tobacco use; Z28.310 Unvaccinated for COVID-19; Z79.899 Other long term (current) drug therapy
CPT/HCPCS: 36415; 80048; 80164; 80185; 85025; 93005

== ENCOUNTER 2022-03-20 16:21 | Emergency (ER) | payer SELFPAY ==
[~2022-03-20] VITALS: Ht 182.8 cm; Wt 79.4 kg
[~2022-03-20 16:21] MED LIST changes: +DIAZ2TAB2 PO; +DIVA-74 PO
--- NOTE | 2022-03-20 16:47 | ED Neurological Problem ---
General Chief Complaint: Neurological Problems Stated Complaint: SEIZURE Nursing Triage Note: PT AMB TO [facility] WITH COMPLAINT OF WITHDRAWS FROM DILANTIN. STATES HIS NEUROLOGIST IS WEANING HIM OFF OF DILANTIN. STATES HE IS HAVING NAUSEA. STATES HE HAS HAD AT LEAST 3 SEIZURES IN THE LAST DAY. WAS STARTED ON DEPAKOTE. Source: patient Exam Limitations: no limitations History of Present Illness Date Seen by Provider: Mar 20, 2022 Time Seen by Provider: 16:35 Initial Comments Patient is a 27 yo M with a PMH of seizure disorder who presents to the ED with nausea, dizziness, and frequent seizures. He states he is currently being weaned from Dilantin by his neurologist. He was placed on Depakote last Wednesday at the same time the Dilantin wean began. He states today is the last dose of his Dilantin wean. He has been taking the Depakote as prescribed. Denies headache, head injury, vision change, focal numbness/weakness. Has not had any vomiting. Spoke with neurologist today and had blood drawn. He has not been given the results. States his neurologist told him to come to the ED if the symptoms worse. Allergies and Home Medications Allergies Coded Allergies: Penicillins (Unverified Allergy, Unknown, 03/20/10) tramadol (Verified Allergy, Unknown, 03/05/22) Uncoded Allergies: SHRIMP (Allergy, Unknown, 03/20/10) Patient Home Medication List Home Medication List Reviewed: Yes Chlorhexidine Gluconate (Chlorhexidine Gluconate) 0.12 % Mouthwash, 15 ML MM BID Prescribed by: LALO FINN on 03/10/222033 Clindamycin HCl (Clindamycin HCl) 300 Mg Capsule, 300 MG PO TID Prescribed by: LALO FINN on 03/10/222033 Diazepam (Diazepam) 2 Mg Tablet, 2 MG PO HS, (Reported) Entered as Reported by: MYLES FELTON on 03/12/221109 Divalproex Sodium (Divalproex Sodium) 250 Mg Tablet.dr, 250 MG PO BID PRN, (Reported) Entered as Reported by: MYLES FELTON on 03/12/221109 Naproxen (Naprosyn) 500 Mg Tablet, 500 MG PO BID PRN for PAIN-MODERATE (5-7) Prescribed by: YUSEF MOLINA on 12/30/19 1648 Ondansetron (Ondansetron Odt) 4 Mg Tab.rapdis, 4 MG SL Q4H PRN for NAUSEA/VOMITING Prescribed by: Cholo uHmphries on 03/20/22 1755 Phenytoin Sodium Extended (Dilantin) 100 Mg Capsule, 300 MG PO HS Prescribed by: LALO FINN on 02/18/22 1620 Tramadol HCl (Tramadol HCl) 50 Mg Tablet, 50 MG PO Q6H PRN for PAIN Prescribed by: TONY GOINS on 01/16/20 1555 Review of Systems Review of Systems Constitutional: dizziness Eyes: No Symptoms Reported Ears, Nose, Mouth, Throat: no symptoms reported Respiratory: no symptoms reported Cardiovascular: no symptoms reported Gastrointestinal: no symptoms reported, nausea Musculoskeletal: no symptoms reported Skin: no symptoms reported Psychiatric/Neurological: See HPI Past Jxrnmkm-Mcqsoa-Oczxon Hx Patient Social History Tobacco Use?: No Use of E-Cig and/or Vaping dev: No Substance use?: No Alcohol Use?: No Pt feels they are or have been: No Immunizations Up To Date PED Vaccines UTD: Yes Seasonal Allergies Seasonal Allergies: No Past Medical History Surgery/Hospitalization HX: SEIZURES Surgeries: No Respiratory: No Cardiac: No Neurological: Yes Seizure Disorder Reproductive Disorders: No Gastrointestinal: No Musculoskeletal: No Endocrine: No HEENT: No Cancer: No Psychosocial: No Blood Disorders: No Family Medical History No Pertinent Family Hx Physical Exam Vital Signs Vital Signs - First Documented 03/20/22 16:28 Pulse 93 Resp 16 B/P (MAP) 129/90 (103) Pulse Ox 98 O2 Delivery Room Air Capillary Refill : Less Than 3 Seconds Height, Weight, BMI Height: 6'0" Weight: 160lbs. oz. 72.186069bo; 23.00 BMI Method:Stated General Appearance: WD/WN, no apparent distress HEENT: PERRL/EOMI, normal ENT inspection Neck: non-tender, full range of motion Respiratory: chest non-tender, lungs clear, normal breath sounds, no respiratory distress, no accessory muscle use Cardiovascular: regular rate, rhythm Gastrointestinal: normal bowel sounds, non tender Back: normal inspection Extremities: normal range of motion, non-tender, normal capillary refill Neurologic/Psychiatric: party supply specialist II-XII nml as tested, no motor/sensory deficits, alert, normal mood/affect, oriented x 3 Skin: normal color, warm/dry Lymphatic: no adenopathy Progress/Results/Core Measures Results/Orders Lab Results Laboratory Tests Test 03/20/22 16:54 Range/Units White Blood Count 12.3 H 4.3-11.0 10^3/uL Red Blood Count 4.94 4.30-5.52 10^6/uL Hemoglobin 15.5 13.3-17.7 g/dL Hematocrit 43 40-54 % Mean Corpuscular Volume 88 80-99 fL Mean Corpuscular Hemoglobin 31 25-34 pg Mean Corpuscular Hemoglobin Concent 36 32-36 g/dL Red Cell Distribution Width 11.7 10.0-14.5 % Platelet Count 253 130-400 10^3/uL Mean Platelet Volume 9.8 9.0-12.2 fL Immature Granulocyte % (Auto) 0 % Neutrophils (%) (Auto) 74 42-75 % Lymphocytes (%) (Auto) 19 12-44 % Monocytes (%) (Auto) 4 0-12 % Eosinophils (%) (Auto) 2 0-10 % Basophils (%) (Auto) 1 0-10 % Neutrophils # (Auto) 9.1 H 1.8-7.8 10^3/uL Lymphocytes # (Auto) 2.4 1.0-4.0 10^3/uL Monocytes # (Auto) 0.4 0.0-1.0 10^3/uL Eosinophils # (Auto) 0.3 0.0-0.3 10^3/uL Basophils # (Auto) 0.1 0.0-0.1 10^3/uL Immature Granulocyte # (Auto) 0.0 0.0-0.1 10^3/uL Sodium Level 139 135-145 MMOL/L Potassium Level 3.6 3.6-5.0 MMOL/L Chloride Level 106 98-107 MMOL/L Carbon Dioxide Level 28 21-32 MMOL/L Anion Gap 5 5-14 MMOL/L Blood Urea Nitrogen 8 7-18 MG/DL Creatinine 0.75 0.60-1.30 MG/DL Estimat Glomerular Filtration Rate 127 BUN/Creatinine Ratio 11 Glucose Level 99 70-105 MG/DL Calcium Level 9.3 8.5-10.1 MG/DL Corrected Calcium 9.0 8.5-10.1 MG/DL Total Bilirubin 0.2 0.1-1.0 MG/DL Aspartate Amino Transf (AST/SGOT) 19 5-34 U/L Alanine Aminotransferase (ALT/SGPT) 18 0-55 U/L Alkaline Phosphatase 96 40-136 U/L Total Protein 7.0 6.4-8.2 GM/DL Albumin 4.4 3.2-4.5 GM/DL Valproic Acid (Depakene) Level 38.1 L 50.0-100.0 UG/ML My Orders Orders - CHOLO HUMPHRIES ASSEMBLER TYPE BAR AND SEGMENT Cbc With Automated Diff (03/20/22 16:48) Comprehensive Metabolic Panel (03/20/22 16:48) Valproic Acid (03/20/22 16:48) Ondansetron Oral Dissolve Tab (Zofran (03/20/22 18:00) Medications Given in ED Current Medications Medications Dose Ordered Sig/Desmond Route Start Time Stop Time Status Last Admin Dose Admin Ondansetron HCl 4 mg ONCE ONCE PO 03/20/22 18:00 03/20/22 18:01 DC 03/20/22 18:05 4 MG Vital Signs/I&O 03/20/22 03/20/22 16:28 18:08 Pulse 93 81 Resp 16 B/P (MAP) 129/90 (103) 122/84 Pulse Ox 98 99 O2 Delivery Room Air Blood Pressure Mean: 103 Progress Progress Note : Progress Note Patient is nontoxic and well hydrated on exam. No focal neurologic deficits noted on exam. Pt is awake, alert, and oriented. He is able to answer all questions appropriately. Labs are unremarkable other than a subtherapeutic Depakote level. Patient was given Zofran for the nausea and will be d/c'd home with an rx for the same. Follow-up with neurologist for further evaluation. He states he is scheduled to see them on Wednesday for labs to be drawn. Return precautions for urgent symptomology discussed. Patient verbalized understanding. Departure Impression Primary Impression: Seizure Additional Impression: Nausea Disposition: HOME, SELF-CARE Condition: Stable Departure-Patient Inst. Decision time for Depature: 17:[address]: [facility] [place] Primary Care Physician Patient Instructions: Seizures, Adult (DC), Nausea and Vomiting, Adult (DC) Scripts Ondansetron (Ondansetron Odt) 4 Mg Tab.rapdis 4 MG SL Q4H PRN for NAUSEA/VOMITING for 7 Days, #20 TAB Prov: CHOLO HUMPHRIES APRN 03/20/22 CHOLO HUMPHRIES APRN Mar 20, 2022 16:47
[2022-03-20 17:00] LABS: BASOPHILS # (AUTO) 0.1 10^3/uL (0.0-0.1); BASOPHILS % (AUTO) 1 % (0-10); EOSINOPHILS # (AUTO) 0.3 10^3/uL (0.0-0.3); EOSINOPHILS % (AUTO) 2 % (0-10); HEMATOCRIT 43 % (40-54); HEMOGLOBIN 15.5 g/dL (13.3-17.7); LYMPHOCYTES # (AUTO) 2.4 10^3/uL (1.0-4.0); LYMPHOCYTES % (AUTO) 19 % (12-44); MEAN CORPUSCULAR HEMOGLOBIN 31 pg (25-34); MEAN CORPUSCULAR HGB CONC 36 g/dL (32-36); MEAN CORPUSCULAR VOLUME 88 fL (80-99); MEAN PLATELET VOLUME 9.8 fL (9.0-12.2); MONOCYTES # (AUTO) 0.4 10^3/uL (0.0-1.0); MONOCYTES % (AUTO) 4 % (0-12); NEUTROPHILS # (AUTO) 9.1 10^3/uL (1.8-7.8); NEUTROPHILS % (AUTO) 74 % (42-75); PLATELET COUNT 253 10^3/uL (130-400); WHITE BLOOD COUNT 12.3 10^3/uL (4.3-11.0)
[2022-03-20 17:17] LABS: ALBUMIN 4.4 GM/DL (3.2-4.5); POTASSIUM 3.6 MMOL/L (3.6-5.0)
[2022-03-20 17:18] LABS: CALCIUM 9.3 MG/DL (8.5-10.1)
[2022-03-20 17:21] LABS: BILIRUBIN,TOTAL 0.2 MG/DL (0.1-1.0)
[2022-03-20 17:23] LABS: CREATININE SERUM 0.75 MG/DL (0.60-1.30)
[2022-03-20 17:32] LABS: VALPROIC ACID 38.1 UG/ML (50.0-100.0)
[2022-03-20] MEDS ORDERED: ONDA4TAB11 SL (17:55)
[2022-03-20] MEDS ORDERED: ONDANSETRON 4 MG (ZOFRAN) ORAL DISSOLVE TAB PO ONE (18:00)
[2022-03-20 18:08] VITALS: BP 122/84
== END 2022-03-20 18:08 | disposition home or self-care (01) ==
LOC: EDUNIT# 16:21 → ER 16:23
DX: G40.909 Epilepsy, unspecified, not intractable, without status epilepticus (principal); R11.0 Nausea
CPT/HCPCS: 36415; 80053; 80164; 85025

== ENCOUNTER 2022-04-03 18:49 | Emergency (ER) | payer SELFPAY ==
[~2022-04-03] VITALS: Ht 182.9 cm; Wt 70.8 kg
[~2022-04-03 18:49] MED LIST changes: +ONDA4TAB11 SL
--- NOTE | 2022-04-03 19:14 | ED General ---
General Stated Complaint: HIPF/BACK PAIN,SEIZURES History of Present Illness Date Seen by Provider: Apr 03, 2022 Time Seen by Provider: 19:14 Initial Comments Patient reports that he is having right lower back and hip pain with some radiation of pain into his legs. Was recently started on Gabapentin and Diclofenac. Says that he thinks that the gabapentin caused him to have a seizure today. Has had better control of seizures recently. Denies injury from fall. Denies any other complaints. (NASEEM NATION APRN) Allergies and Home Medications Allergies Coded Allergies: Penicillins (Unverified Allergy, Unknown, 03/20/10) tramadol (Verified Allergy, Unknown, 03/05/22) Uncoded Allergies: SHRIMP (Allergy, Unknown, 03/20/10) Patient Home Medication List Home Medication List Reviewed: Yes (NASEEM NATION APRN) Chlorhexidine Gluconate (Chlorhexidine Gluconate) 0.12 % Mouthwash, 15 ML MM BID Prescribed by: LALO FINN on 03/10/222033 Clindamycin HCl (Clindamycin HCl) 300 Mg Capsule, 300 MG PO TID Prescribed by: LALO FINN on 03/10/222033 Diazepam (Diazepam) 2 Mg Tablet, 2 MG PO HS, (Reported) Entered as Reported by: MYLES FELTON on 03/12/22 111 Divalproex Sodium (Divalproex Sodium) 250 Mg Tablet.dr, 250 MG PO BID PRN, (Reported) Entered as Reported by: MYLES FELTON on 03/12/22 111 Naproxen (Naprosyn) 500 Mg Tablet, 500 MG PO BID PRN for PAIN-MODERATE (5-7) Prescribed by: YUSEF MOLINA on 12/30/19 1648 Ondansetron (Ondansetron Odt) 4 Mg Tab.rapdis, 4 MG SL Q4H PRN for NAUSEA/VOMITING Prescribed by: Cholo Humphries on 03/20/22 1755 Phenytoin Sodium Extended (Dilantin) 100 Mg Capsule, 300 MG PO HS Prescribed by: LALO FINN on 02/18/22 1620 Tramadol HCl (Tramadol HCl) 50 Mg Tablet, 50 MG PO Q6H PRN for PAIN Prescribed by: TONY GOINS on 01/16/20 1555 Review of Systems Review of Systems Constitutional: no symptoms reported Respiratory: no symptoms reported Cardiovascular: no symptoms reported Genitourinary: no symptoms reported Musculoskeletal: back pain (right lower back), joint pain (right hip) (NASEEM NATION APRN) All Other Systems Reviewed Negative Unless Noted: Yes (NASEEM NATION APRN) Past Hqffsik-Frllka-Evrdiv Hx Immunizations Up To Date PED Vaccines UTD: Yes (NASEEM NATION APRN) Seasonal Allergies Seasonal Allergies: No (NASEEM NATION APRN) Past Medical History Surgery/Hospitalization HX: SEIZURES Surgeries: No Respiratory: No Cardiac: No Neurological: Yes Seizure Disorder Reproductive Disorders: No Gastrointestinal: No Musculoskeletal: No Endocrine: No HEENT: No Cancer: No Psychosocial: No Blood Disorders: No (NASEEM NATION APRN) Family Medical History Reviewed Nursing Family Hx (NASEEM NATION APRN) No Pertinent Family Hx (NASEEM NATION APRN) Physical Exam Vital Signs Vital Signs - First Documented 04/03/22 04/03/22 19:02 19:32 Temp 36.7 Pulse 82 Resp 17 B/P (MAP) 138/87 (104) Pulse Ox 98 O2 Delivery Room Air (ANITA,ADARSH K DO) Vital Signs Capillary Refill : (NASEEM NATION APRN) Height, Weight, BMI Height: 6'0" Weight: 160lbs. oz. 72.474115ff; 23.00 BMI Method:Stated General Appearance: No Apparent Distress, WD/WN HEENT: PERRL/EOMI, TMs Normal, Normal ENT Inspection, Pharynx Normal, Moist Mucous Membranes Neck: Full Range of Motion, Normal Inspection, Non Tender, Supple Respiratory: Chest Non Tender, Lungs Clear Cardiovascular: Regular Rate, Rhythm, No Edema Gastrointestinal: Normal Bowel Sounds, Non Tender, Soft Back: Muscle Spasm (right lower paraspinal tenderness to palpation) Extremity: Normal Capillary Refill, Normal Inspection, Normal Range of Motion Neurologic/Psychiatric: Alert, Oriented x3 Skin: Normal Color, Warm/Dry (NASEEM NATION APRN) Progress/Results/Core Measures Suspected Sepsis SIRS Temperature: Pulse: Respiratory Rate: Blood Pressure / Mean: (NASEEM NATION APRN) Results/Orders Vital Signs/I&O 04/03/22 04/03/22 19:02 19:32 Temp 36.7 36.4 Pulse 82 77 Resp 17 16 B/P (MAP) 138/87 (104) 127/64 Pulse Ox 98 O2 Delivery Room Air Room Air (ADARSH HOWARD DO) Vital Signs/I&O Capillary Refill : (NASEME NATION APRN) Departure Impression Primary Impression: Sciatica of right side Disposition: HOME, SELF-CARE Condition: Stable Departure-Patient Inst. Decision time for Depature: 19:26 (NASEEM NATION APRN) Referrals: [facility] [place] Primary Care Physician Patient Instructions: Sciatica ED Add. Discharge Instructions: 1. Home and rest. 2. Continue medications as directed. 3. Follow up with PCP as needed. 4. Return here if worse or concerns. ATTENDING PHYSICIAN NOTE: I WAS PHYSICALLY PRESENT ER PHYSICIAN, BUT I WAS NOT INVOLVED IN ANY DECISION MAKING OR ANY CARE OF THIS PATIENT, AND I AM NOT COLLABORATING PHYSICIAN. (ADARSH HOWARD DO) NASEEM NATION APRN Apr 03, 2022 19:14 ADARSH HOWARD DO Apr 05, 2022 11:00
[2022-04-03] MEDS ORDERED: methylPREDNISolone 125 MG (Solu-MEDROL) VIAL IM ONE (19:30)
[2022-04-03 19:32] VITALS: BP 127/64
== END 2022-04-03 19:32 | disposition home or self-care (01) ==
LOC: EDUNIT# 18:49 → ER 18:51
DX: M54.41 Lumbago with sciatica, right side (principal); Z28.310 Unvaccinated for COVID-19
CPT/HCPCS: 99284

== ENCOUNTER 2022-04-09 23:48 | Emergency (ER) | payer SELFPAY ==
[~2022-04-09] VITALS: Ht 182.8 cm; Wt 72.5 kg
[2022-04-10] MEDS ORDERED: RX-CLINDAMYCIN 150 MG (CLEOCIN) CAP PPK#4 PO STA (00:04)
[2022-04-10] MEDS ORDERED: CLIN-144 PO (00:08)
--- NOTE | 2022-04-10 00:09 | ED General ---
General Chief Complaint: Neurological Problems Stated Complaint: SEIZURES - DENTAL PAIN Source of Information: Patient History of Present Illness Date Seen by Provider: Apr 09, 2022 Time Seen by Provider: 23:57 Initial Comments PT ARRIVES VIA POV WITH ANOTHER MALE C/O DENTAL PAIN--THIS IS A CHRONIC COMPLAINT HAS CHRONIC DENTAL ISSUES. HAS BEEN TOLD IN THE PAST THAT HE NEEDS TO SEE AN ORAL SURGEON AND HAVE ALL OF HIS TEETH REMOVED, BUT HAS NOT MADE ANY ATTEMPT TO DO THAT. HE HAS NOT ATTEMPTED TO SEE A DENTIST AT ANY TIME RECENTLY. PT GOES TO [facility], STATES "YOU CAN ONLY GOT THERE ON WEDNESDAY, WEDNESDAY AND WEDNESDAY" --TODAY IS WEDNESDAY AND HE DID NOT ATTEMPT TO CONTACT THEM OR GO THERE AT ANY TIME THIS WEEK FOR THIS PROBLEM. HE DOES NOT HAVE ANY APPOINTMENTS WITH ANYONE FOR THIS CHRONIC PROBLEM. NO SWELLING TO FACE NO FEVER SYMPTOMS ARE NO DIFFERENT TODAY HAS NOT TAKEN ANYTHING FOR PAIN ALSO STATES THAT HE HAD 3 SEIZURES TODAY. NO INJURIES FROM THESE. NONE LASTED LONGER THAN 15 MINUTES. NO INCONTINENCE PT STATES HE HAS BEEN DX WITH SEIZURES AND HAS BEEN SEEN BY A NEUROLOGIST WITH [facility] IN [place] PT STATES HE HAD AN MRI AND EEG DONE AT [facility] THIS PAST Wednesday04/07/22. STATES HE HAS A FOLLOW UP APPOINTMENT WITH THE NEUROLOGIST 04/20/22 PT STATES THE ONLY MEDICATION THAT HE TAKES IS DEPAKOTE HE CLAIMS THAT HE HAS NOT MISSED ANY DOSES OF MEDICATION OR HAD ANY MEDICATION CHANGES PT STATES HE NORMALLY HAS 2-3 SEIZURES EVERY DAY, AND HAS FOR YEARS. PT STATES HE HAS NOT SLEPT LAST NIGHT, AND SEIZURES ARE WORSE IF HE DOESN'T GET ANY SLEEP. TODAY IS NO DIFFERENT THAN ANY OTHER DAY PT HAS BEEN HERE A MULTITUDE OF TIMES, NEARLY ALL FOR THESE SAME COMPLAINTS OF DENTAL PAIN AND SEIZURES, OTHERS HAVE BEEN FOR SOME TYPE OF PAIN COMPLAINT HE HAS HAD 8 VISITS HERE SINCE FOR BOTH OF THESE COMPLAINTS. LAST VISIT WAS 04/03/22 FOR C/O LOW BACK PAIN WITH SCIATICA SYMPTOMS. NO RX GIVEN ON HIS VISITS IN FEBRUARY, HE REPORTED THAT HE WAS BEING WEANED OFF DILANTIN AND STARTED ON DEPAKOTE PT CLAIMS HE HAS NOT BEEN ON ANTIBIOTICS IN OVER A MONTH. HAS NOT HAD COVID OR FLU VACCINES PCP [facility] Allergies and Home Medications Allergies Coded Allergies: Penicillins (Unverified Allergy, Unknown, 03/20/10) tramadol (Verified Allergy, Unknown, 03/05/22) Uncoded Allergies: SHRIMP (Allergy, Unknown, 03/20/10) Patient Home Medication List Home Medication List Reviewed: Yes Chlorhexidine Gluconate (Chlorhexidine Gluconate) 0.12 % Mouthwash, 15 ML MM BID Prescribed by: LALO FINN on 03/10/222033 Clindamycin HCl (Clindamycin HCl) 300 Mg Capsule, 300 MG PO TID Prescribed by: LALO FINN on 03/10/222033 Clindamycin HCl (Clindamycin HCl) 300 Mg Capsule, 300 MG PO QID Prescribed by: ADARSH HOWARD on 04/10/22 0008 Diazepam (Diazepam) 2 Mg Tablet, 2 MG PO HS, (Reported) Entered as Reported by: MYLES FELTON on 03/12/22 111 Divalproex Sodium (Divalproex Sodium) 250 Mg Tablet.dr, 250 MG PO BID PRN, (Reported) Entered as Reported by: MYLES FELTON on 03/12/22 1110 Naproxen (Naprosyn) 500 Mg Tablet, 500 MG PO BID PRN for PAIN-MODERATE (5-7) Prescribed by: YUSEF MOLINA on 12/30/19 1648 Ondansetron (Ondansetron Odt) 4 Mg Tab.rapdis, 4 MG SL Q4H PRN for NAUSEA/VOMITING Prescribed by: Cholo Humphries on 03/20/22 1755 Phenytoin Sodium Extended (Dilantin) 100 Mg Capsule, 300 MG PO HS Prescribed by: LALO FINN on 02/18/22 1620 Tramadol HCl (Tramadol HCl) 50 Mg Tablet, 50 MG PO Q6H PRN for PAIN Prescribed by: TONY GOINS on 01/16/20 1555 Review of Systems Review of Systems Constitutional: no symptoms reported EENTM: see HPI Respiratory: no symptoms reported Cardiovascular: no symptoms reported Gastrointestinal: no symptoms reported Genitourinary: no symptoms reported Musculoskeletal: no symptoms reported Skin: no symptoms reported Psychiatric/Neurological: See HPI; Denies Headache, Denies Numbness, Denies Paresthesia, Denies Tingling, Denies Tremors, Denies Weakness Hematologic/Lymphatic: No Symptoms Reported Immunological/Allergic: no symptoms reported Past Gepmyla-Oznodn-Semrto Hx Patient Social History Tobacco Use?: Yes Tobacco type used: Cigarettes Immunizations Up To Date PED Vaccines UTD: Yes Seasonal Allergies Seasonal Allergies: No Past Medical History Surgery/Hospitalization HX: SEIZURES Surgeries: No Respiratory: No Cardiac: No Neurological: Yes Seizure Disorder Reproductive Disorders: No Genitourinary: No Gastrointestinal: No Musculoskeletal: No Endocrine: No HEENT: Yes (DENTAL CARIES/CHRONIC DENTAL PAIN COMPLAINTS) Cancer: No Psychosocial: No Integumentary: No Blood Disorders: No Family Medical History No Pertinent Family Hx Physical Exam Vital Signs Vital Signs - First Documented 04/09/22 23:56 Temp 36.8 Pulse 77 Resp 20 B/P (MAP) 139/93 (108) Pulse Ox 99 O2 Delivery Room Air Capillary Refill : Height, Weight, BMI Height: 6'0" Weight: 160lbs. oz. 72.216998lg; 21.00 BMI Method:Stated General Appearance: No Apparent Distress, WD/WN, Thin, Other (DIRTY, COVERED IN WHAT APPEARS TO BE ANIMAL HAIR. DOES NOT APPEAR TO BE IN ANY DISTRESS. REEKS OF CIGARETTES. ) HEENT: PERRL/EOMI, TMs Normal, Other (EXTENSIVE DENTAL CARIES WITH DECAY DOWN TO GUMS TO NEARLY ALL TEETH AND MULTIPLE TEETH COMPLETELY ERODED AWAY DOWN TO GUM LINE. GUM INFLAMMATION AROUND SEVERAL TEETH. NO FACIAL SWELLING OR ERYTHEMA. NO TRISMUS. NO FLUCTUANCE. ) Neck: Normal Inspection Respiratory: Normal Breath Sounds, No Accessory Muscle Use, No Respiratory Distress Cardiovascular: Regular Rate, Rhythm Gastrointestinal: Soft Extremity: Normal Inspection Neurologic/Psychiatric: Alert, Oriented x3, No Motor/Sensory Deficits, merchandise handler II- XII Norm as Tested, Other (DOES NOT APPEAR POST-ICTAL. ) Skin: Normal Color, Warm/Dry, Tattoos/Piercings (EXTENSIVE TATTOOS) Progress/Results/Core Measures Suspected Sepsis SIRS Temperature: Pulse: Respiratory Rate: Blood Pressure / Mean: Results/Orders My Orders Orders - ADARSH HOWARD DO Rx-Clindamycin Capsule (Rx-Cleocin Capsu (04/10/22 00:04) Vital Signs/I&O 04/09/22 04/10/22 23:56 00:18 Temp 36.8 Pulse 77 77 Resp 20 20 B/P (MAP) 139/93 (108) 139/93 Pulse Ox 99 99 O2 Delivery Room Air Room Air Capillary Refill : Progress Note : Progress Note STRESSED THE IMPORTANCE OF FOLLOW UP WITH DENTIST/ORAL SURGEON SOON POSSI BLE. Departure Impression Primary Impression: Dental caries Additional Impressions: Pain due to dental caries SELF REPORTED SEIZURES Disposition: 01 HOME, SELF-CARE Condition: Stable Departure-Patient Inst. Decision time for Depature: 00:05 [address]errals: [facility] [place] ([place]P/Family) Primary Care Physician Patient Instructions: Seizures, Adult (DC), Tooth Decay, Adult (DC) Add. Discharge Instructions: FOLLOW UP WITH [facility] [place] [facility] FOR FURTHER CARE--CALL IN THE MORNING TO SCHEDULE APPOINTMENT YOU MAY FOLLOW UP WITH THEIR REGULAR CLINIC FOR DENTAL COMPLAINTS UNTIL YOU CAN GET INTO THE DENTAL CLINIC FOLLOW UP WITH YOUR NEUROLOGIST SCHEDULED FOR FURTHER CARE CONTINUE YOUR SEIZURE MEDICATION PRESCRIBED TYLENOL 1 GRAM PLUS MOTRIN 800 MG 4 TIMES A DAY FOR PAIN YOU MAY ALSO USE OVER THE COUNTER ORA JEL FOR DENTAL PAIN All discharge instructions reviewed with patient and/or family. Voiced understanding. Scripts Clindamycin HCl (Clindamycin HCl) 300 Mg Capsule 300 MG PO QID for 7 Days, #40 CAP Prov: ADARSH HOWARD DO 04/10/22 ADARSH HOWARD DO Apr 10, 2022 00:09
[2022-04-10 00:18] VITALS: BP 139/93
[2022-04-10] MEDS ORDERED: ACHD5005 PO (12:32)
== END 2022-04-10 00:18 | disposition home or self-care (01) ==
LOC: EDUNIT# 23:48 → ER 23:49
DX: K02.9 Dental caries, unspecified (principal); F17.210 Nicotine dependence, cigarettes, uncomplicated; Z88.0 Allergy status to penicillin; Z88.5 Allergy status to narcotic agent; Z28.310 Unvaccinated for COVID-19
CPT/HCPCS: 99282

== ENCOUNTER 2022-04-10 11:03 | Emergency (ER) | payer SELFPAY ==
[~2022-04-10] VITALS: Ht 182 cm; Wt 72.5 kg
--- NOTE | 2022-04-10 11:13 | ED Neurological Problem ---
General Chief Complaint: Neurological Problems Stated Complaint: SEIZURE Source: patient Exam Limitations: no limitations History of Present Illness Date Seen by Provider: Apr 10, 2022 Time Seen by Provider: 11:10 Initial Comments To ER with reports of 5 seizures this morning the longest one lasting 30 minutes allegedly. He is on Depakote. He recently had an EEG and MRI from Dr. Bolton at [facility] in [place] and states that he was told everything looked normal, once he gets his insurance they will do an in-house EEG. He has had some dental infections, was seen here last night for seizure activity as well and prescribed clindamycin which he has not yet started. He is on Depakote. He states Dr. Bolton started him on Keppra today but he has not yet filled that prescription. He called their office before coming here this morning. Timing/Duration: waxing and waning Severity: moderate Associated Symptoms: denies symptoms Allergies and Home Medications Allergies Coded Allergies: Penicillins (Unverified Allergy, Unknown, 03/20/10) tramadol (Verified Allergy, Unknown, 03/05/22) Uncoded Allergies: SHRIMP (Allergy, Unknown, 03/20/10) Patient Home Medication List Home Medication List Reviewed: Yes Chlorhexidine Gluconate (Chlorhexidine Gluconate) 0.12 % Mouthwash, 15 ML MM BID Prescribed by: LALO FINN on 03/10/222033 Clindamycin HCl (Clindamycin HCl) 300 Mg Capsule, 300 MG PO TID Prescribed by: LALO FINN on 03/10/222033 Clindamycin HCl (Clindamycin HCl) 300 Mg Capsule, 300 MG PO QID Prescribed by: ADARSH HOWARD on 04/10/22 0008 Diazepam (Diazepam) 2 Mg Tablet, 2 MG PO HS, (Reported) Entered as Reported by: MYLES FELTON on 03/12/22 111 Divalproex Sodium (Divalproex Sodium) 250 Mg Tablet.dr, 250 MG PO BID PRN, (Reported) Entered as Reported by: MYLES FELTON on 03/12/22 111 Naproxen (Naprosyn) 500 Mg Tablet, 500 MG PO BID PRN for PAIN-MODERATE (5-7) Prescribed by: YUSEF MOLINA on 12/30/19 1648 Ondansetron (Ondansetron Odt) 4 Mg Tab.rapdis, 4 MG SL Q4H PRN for NAUSEA/VOMITING Prescribed by: Cholo Humphries on 03/20/22 1755 Phenytoin Sodium Extended (Dilantin) 100 Mg Capsule, 300 MG PO HS Prescribed by: LALO FINN on 02/18/22 1620 Tramadol HCl (Tramadol HCl) 50 Mg Tablet, 50 MG PO Q6H PRN for PAIN Prescribed by: TONY GOINS on 01/16/20 1555 Review of Systems Review of Systems Constitutional: see HPI Eyes: No Symptoms Reported Ears, Nose, Mouth, Throat: no symptoms reported Respiratory: no symptoms reported Cardiovascular: no symptoms reported Genitourinary: no symptoms reported Musculoskeletal: no symptoms reported Psychiatric/Neurological: See HPI Endocrine: No Symptoms Reported Hematologic/Lymphatic: No Symptoms Reported Past Nvrhalv-Wfacme-Zialyu Hx Patient Social History Tobacco Use?: Yes Tobacco type used: Cigarettes Smoking Status: Current Everyday Smoker Substance use?: No Alcohol Use?: No Pt feels they are or have been: No Immunizations Up To Date PED Vaccines UTD: Yes Seasonal Allergies Seasonal Allergies: No Past Medical History Surgery/Hospitalization HX: SEIZURES Surgeries: No Respiratory: No Cardiac: No Neurological: Yes Seizure Disorder Reproductive Disorders: No Genitourinary: No Gastrointestinal: No Musculoskeletal: No Endocrine: No HEENT: Yes (DENTAL CARIES/CHRONIC DENTAL PAIN COMPLAINTS) Cancer: No Psychosocial: No Integumentary: No Blood Disorders: No Family Medical History No Pertinent Family Hx Physical Exam Vital Signs Vital Signs - First Documented 04/10/22 11:08 Temp 37.2 Pulse 69 Resp 18 B/P (MAP) 143/92 (109) Pulse Ox 97 Capillary Refill : Height, Weight, BMI Height: 6'0" Weight: 160lbs. oz. [id number]; 21.00 BMI Method:Stated General Appearance: WD/WN, no apparent distress, other (No incontinence of urine, no tongue or lip lacerations. Alert and oriented not postictal. He states that he is usually only postictal for a very brief period of time.) HEENT: PERRL/EOMI, normal ENT inspection Respiratory: no respiratory distress, no accessory muscle use Cardiovascular: regular rate, rhythm, no murmur Gastrointestinal: normal bowel sounds, non tender, soft Extremities: normal range of motion, non-tender Neurologic/Psychiatric: alert, normal mood/affect, oriented x 3 Crainal Nerves: normal hearing, normal speech, PERRL Skin: normal color, warm/dry Progress/Results/Core Measures Results/Orders Lab Results Laboratory Tests Test 04/10/22 11:17 Range/Units White Blood Count 6.7 4.3-11.0 10^3/uL Red Blood Count 5.34 4.30-5.52 10^6/uL Hemoglobin 16.8 13.3-17.7 g/dL Hematocrit 47 40-54 % Mean Corpuscular Volume 87 80-99 fL Mean Corpuscular Hemoglobin 32 25-34 pg Mean Corpuscular Hemoglobin Concent 36 32-36 g/dL Red Cell Distribution Width 12.0 10.0-14.5 % Platelet Count 248 130-400 10^3/uL Mean Platelet Volume 10.0 9.0-12.2 fL Immature Granulocyte % (Auto) 1 % Neutrophils (%) (Auto) 54 42-75 % Lymphocytes (%) (Auto) 33 12-44 % Monocytes (%) (Auto) 7 0-12 % Eosinophils (%) (Auto) 4 0-10 % Basophils (%) (Auto) 1 0-10 % Neutrophils # (Auto) 3.6 1.8-7.8 10^3/uL Lymphocytes # (Auto) 2.2 1.0-4.0 10^3/uL Monocytes # (Auto) 0.5 0.0-1.0 10^3/uL Eosinophils # (Auto) 0.3 0.0-0.3 10^3/uL Basophils # (Auto) 0.1 0.0-0.1 10^3/uL Immature Granulocyte # (Auto) 0.0 0.0-0.1 10^3/uL Sodium Level 140 135-145 MMOL/L Potassium Level 3.9 3.6-5.0 MMOL/L Chloride Level 108 H 98-107 MMOL/L Carbon Dioxide Level 21 21-32 MMOL/L Anion Gap 11 5-14 MMOL/L Blood Urea Nitrogen 7 7-18 MG/DL Creatinine 0.74 0.60-1.30 MG/DL Estimat Glomerular Filtration Rate 127 BUN/Creatinine Ratio 9 Glucose Level 85 70-105 MG/DL Calcium Level 9.3 8.5-10.1 MG/DL Corrected Calcium 8.5-10.1 MG/DL Total Bilirubin 0.3 0.1-1.0 MG/DL Aspartate Amino Transf (AST/SGOT) 19 5-34 U/L Alanine Aminotransferase (ALT/SGPT) 17 0-55 U/L Alkaline Phosphatase 80 40-136 U/L Total Protein 7.4 6.4-8.2 GM/DL Albumin 4.7 H 3.2-4.5 GM/DL Valproic Acid (Depakene) Level 75.2 50.0-100.0 UG/ML My Orders Orders - YUSEF MOLINA APRN Cbc With Automated Diff (04/10/22 11:07) Comprehensive Metabolic Panel (04/10/22 11:07) Ed Iv/Invasive Line Start (04/10/22 11:07) Diazepam Tablet (Valium Tablet) (04/10/22 11:15) Valproic Acid (04/10/22 11:09) Levetiracetam Injection (Keppra Injectio (04/10/22 21:00) Levetiracetam Injection (Keppra Injectio (04/10/22 11:51) Ns (Ivpb) (Sodium Chloride 0.9% Ivpb Bag (04/10/22 11:51) Medications Given in ED Current Medications Medications Dose Ordered Sig/Desmond Route Start Time Stop Time Status Last Admin Dose Admin Diazepam 5 mg ONCE ONCE PO 04/10/22 11:15 04/10/22 11:16 DC 04/10/22 11:20 5 MG Vital Signs/I&O 04/10/22 11:08 Temp 37.2 Pulse 69 Resp 18 B/P (MAP) 143/92 (109) Pulse Ox 97 Departure Impression Primary Impression: Dental caries Additional Impression: Seizure Disposition: 01 HOME, SELF-CARE Condition: Stable Departure-Patient Inst. Decision time for Depature: 11:12 Referrals: [facility] (PCP/Family) Primary Care Physician Patient Instructions: Seizures, Adult (DC) Scripts Hydrocodone/Acetaminophen (Hydrocodone-Acetamin 5-325 mg) 5 Mg-325 Mg Tablet 1 TAB PO Q4H PRN for PAIN-MODERATE (5-7), #10 TAB Prov: YUSEF MOLINA APRN 04/10/22 YUSEF MOLINA APRN Apr 10, 2022 11:13
[2022-04-10 11:26] LABS: BASOPHILS # (AUTO) 0.1 10^3/uL (0.0-0.1); BASOPHILS % (AUTO) 1 % (0-10); EOSINOPHILS # (AUTO) 0.3 10^3/uL (0.0-0.3); EOSINOPHILS % (AUTO) 4 % (0-10); HEMATOCRIT 47 % (40-54); HEMOGLOBIN 16.8 g/dL (13.3-17.7); LYMPHOCYTES # (AUTO) 2.2 10^3/uL (1.0-4.0); LYMPHOCYTES % (AUTO) 33 % (12-44); MEAN CORPUSCULAR HEMOGLOBIN 32 pg (25-34); MEAN CORPUSCULAR HGB CONC 36 g/dL (32-36); MEAN CORPUSCULAR VOLUME 87 fL (80-99); MONOCYTES # (AUTO) 0.5 10^3/uL (0.0-1.0); MONOCYTES % (AUTO) 7 % (0-12); NEUTROPHILS # (AUTO) 3.6 10^3/uL (1.8-7.8); NEUTROPHILS % (AUTO) 54 % (42-75); PLATELET COUNT 248 10^3/uL (130-400); WHITE BLOOD COUNT 6.7 10^3/uL (4.3-11.0)
[2022-04-10 11:36] LABS: ALBUMIN 4.7 GM/DL (3.2-4.5)
[2022-04-10 11:37] LABS: CHLORIDE 108 MMOL/L (98-107); POTASSIUM 3.9 MMOL/L (3.6-5.0); SODIUM 140 MMOL/L (135-145)
[2022-04-10 11:38] LABS: CALCIUM 9.3 MG/DL (8.5-10.1)
[2022-04-10 11:39] LABS: GLUCOSE 85 MG/DL (70-105); TOTAL PROTEIN 7.4 GM/DL (6.4-8.2)
[2022-04-10 11:40] LABS: CARBON DIOXIDE 21 MMOL/L (21-32)
[2022-04-10 11:41] LABS: BILIRUBIN,TOTAL 0.3 MG/DL (0.1-1.0)
[2022-04-10 11:42] LABS: ALKALINE PHOSPHATASE 80 U/L (40-136); CREATININE SERUM 0.74 MG/DL (0.60-1.30); GFR ESTIMATED 127
[2022-04-10 11:44] LABS: BUN/CREATININE RATIO 9
[2022-04-10 11:45] LABS: ALANINE AMINOTRANSFERASE 17 U/L (0-55)
[2022-04-10 11:51] LABS: VALPROIC ACID 75.2 UG/ML (50.0-100.0)
[2022-04-10] MEDS ORDERED: NS (IVPB) 100 ML ONE (11:51)
[2022-04-10] MEDS ORDERED: ACHD5005 PO (12:32)
[2022-04-10 12:52] VITALS: BP 119/82
== END 2022-04-10 12:52 | disposition home or self-care (01) ==
LOC: EDUNIT# 11:03 → ER 11:04
DX: K02.9 Dental caries, unspecified (principal); G40.909 Epilepsy, unspecified, not intractable, without status epilepticus; F17.210 Nicotine dependence, cigarettes, uncomplicated; Z88.5 Allergy status to narcotic agent; Z28.310 Unvaccinated for COVID-19
CPT/HCPCS: 36415; 80053; 80164; 85025; 99283

== ENCOUNTER 2022-04-11 18:36 | Emergency (ER) | payer SELFPAY ==
[~2022-04-11] VITALS: Ht 182.8 cm; Wt 72.5 kg
[~2022-04-11 18:36] MED LIST changes: +ACHD5005 PO
[2022-04-11] MEDS ORDERED: NS IV 1000 ML 1,000 ML IV SCH (19:00)
[2022-04-11 19:09] LABS: BILIRUBIN,URINE NEGATIVE (NEGATIVE); CLARITY,URINE CLEAR; COLOR,URINE YELLOW; GLUCOSE, URINE (UA) NEGATIVE (NEGATIVE); KETONES,URINE TRACE (NEGATIVE); LEUKOCYTE ESTERASE ,URINE NEGATIVE (NEGATIVE); NITRITE,URINE NEGATIVE (NEGATIVE); PROTEIN,URINE NEGATIVE (NEGATIVE)
[2022-04-11 19:11] LABS: BASOPHILS # (AUTO) 0.1 10^3/uL (0.0-0.1); BASOPHILS % (AUTO) 1 % (0-10); EOSINOPHILS # (AUTO) 0.4 10^3/uL (0.0-0.3); EOSINOPHILS % (AUTO) 6 % (0-10); HEMATOCRIT 44 % (40-54); LYMPHOCYTES # (AUTO) 2.4 10^3/uL (1.0-4.0); LYMPHOCYTES % (AUTO) 35 % (12-44); MEAN CORPUSCULAR HEMOGLOBIN 32 pg (25-34); MEAN CORPUSCULAR HGB CONC 36 g/dL (32-36); MEAN CORPUSCULAR VOLUME 87 fL (80-99); MEAN PLATELET VOLUME 10.3 fL (9.0-12.2); MONOCYTES # (AUTO) 0.4 10^3/uL (0.0-1.0); MONOCYTES % (AUTO) 6 % (0-12); NEUTROPHILS # (AUTO) 3.6 10^3/uL (1.8-7.8); NEUTROPHILS % (AUTO) 52 % (42-75); PLATELET COUNT 231 10^3/uL (130-400); WHITE BLOOD COUNT 6.8 10^3/uL (4.3-11.0)
[2022-04-11 19:19] LABS: ALBUMIN 4.4 GM/DL (3.2-4.5)
[2022-04-11 19:20] LABS: CHLORIDE 107 MMOL/L (98-107); POTASSIUM 3.4 MMOL/L (3.6-5.0); SODIUM 138 MMOL/L (135-145)
[2022-04-11 19:21] LABS: CALCIUM 9.6 MG/DL (8.5-10.1)
[2022-04-11 19:22] LABS: GLUCOSE 107 MG/DL (70-105); TOTAL PROTEIN 6.8 GM/DL (6.4-8.2)
[2022-04-11 19:23] LABS: BACTERIA,URINE FEW /HPF; CARBON DIOXIDE 20 MMOL/L (21-32); WBC,URINE 0-2 /HPF
[2022-04-11 19:24] LABS: AMPHETAMINE SCREEN, URINE NEGATIVE (NEGATIVE); BARBITURATE SCREEN URINE NEGATIVE (NEGATIVE); BENZODIAZEPINES SCREEN URINE POSITIVE (NEGATIVE); BILIRUBIN,TOTAL 0.2 MG/DL (0.1-1.0); CANNABINOID SCREEN, URINE POSITIVE (NEGATIVE); COCAINE SCREEN URINE NEGATIVE (NEGATIVE); METHADONE STAT NEGATIVE (NEGATIVE); OPIATE SCREEN URINE POSITIVE (NEGATIVE); OXYCODONE STAT NEGATIVE (NEGATIVE); PROPOXYPHENE STAT NEGATIVE (NEGATIVE); TRICYCLIC ANTIDEPRESSANTS SCRE NEGATIVE (NEGATIVE)
[2022-04-11 19:25] LABS: ALKALINE PHOSPHATASE 76 U/L (40-136)
[2022-04-11 19:26] LABS: CREATININE SERUM 0.71 MG/DL (0.60-1.30); GFR ESTIMATED 129
[2022-04-11 19:27] LABS: BUN/CREATININE RATIO 11
[2022-04-11 19:28] LABS: MAGNESIUM 1.9 MG/DL (1.6-2.4)
[2022-04-11 19:29] LABS: ALANINE AMINOTRANSFERASE 16 U/L (0-55)
[2022-04-11 19:35] LABS: VALPROIC ACID 59.1 UG/ML (50.0-100.0)
[2022-04-11] MEDS ORDERED: LORazepam INJ 2 MG/ML (ATIVAN) VIAL IVP ONE ×2 (19:45→20:00)
[2022-04-11] MEDS ORDERED: ONDANSETRON 4 MG/2 ML (SDV) Z0FRAN IVP ONE (19:45)
--- NOTE | 2022-04-11 20:17 | Diagnostic Imaging Report ---
PROCEDURE: CT head and CT cervical spine without contrast. TECHNIQUE: Multiple contiguous axial images were obtained through the brain and cervical spine without the use of intravenous contrast. Sagittal and coronal reformations through the cervical spine were then performed. Auto Exposure Controls were utilized during the CT exam to meet ALARA standards for radiation dose reduction. INDICATION: Multiple seizures. COMPARISON: None. CT HEAD: There is no intracranial hemorrhage, hydrocephalus, cerebral edema, mass, mass effect or evidence for an elevation of the intracranial pressures. There are no abnormal extra-axial fluid collections. There is no loss of the normal cortical bernabe-white matter differentiation. The basilar cisterns are patent. Midline structures nondisplaced. There is no calvarial fracture. The sinuses showed no air-fluid level. There is mild membrane thickening in the bilateral maxillary's. CT CERVICAL SPINE: Vertebral statures normal, the alignment anatomic, the facet relationships normal. The spinal canal and neural foramina patent. No fracture. No paraspinal hemorrhage. Craniocervical relationship in the central skull base appears intact. Hyoid and tracheal cartilage showed no traumatic deformity. IMPRESSION: Unremarkable CT head and cervical spine. Dictated by: Dictated on workstation # [id number]
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
[2022-04-11 23:12] VITALS: BP 115/90
== END 2022-04-11 23:12 | disposition home or self-care (01) ==
LOC: EDUNIT# 18:36 → ER 18:37
DX: G40.909 Epilepsy, unspecified, not intractable, without status epilepticus (principal); R51.9 Headache, unspecified; M54.2 Cervicalgia; F17.210 Nicotine dependence, cigarettes, uncomplicated; Z28.310 Unvaccinated for COVID-19
CPT/HCPCS: 70450; 72125; 80053; 80164; 80306; 81000; 82550; 83735; 85025; 86141; 87088; 99283; G0480; 36415; 80320

== ENCOUNTER 2022-04-12 09:49 | Emergency (ER) | payer SELFPAY ==
[~2022-04-12] VITALS: Ht 170 cm; Wt 72.0 kg
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
[2022-04-12 10:04] LABS: BASOPHILS # (AUTO) 0.1 10^3/uL (0.0-0.1); BASOPHILS % (AUTO) 1 % (0-10); EOSINOPHILS # (AUTO) 0.2 10^3/uL (0.0-0.3); EOSINOPHILS % (AUTO) 2 % (0-10); HEMATOCRIT 46 % (40-54); HEMOGLOBIN 16.7 g/dL (13.3-17.7); LYMPHOCYTES # (AUTO) 1.6 10^3/uL (1.0-4.0); LYMPHOCYTES % (AUTO) 18 % (12-44); MEAN CORPUSCULAR HEMOGLOBIN 32 pg (25-34); MEAN CORPUSCULAR HGB CONC 36 g/dL (32-36); MEAN CORPUSCULAR VOLUME 88 fL (80-99); MONOCYTES # (AUTO) 0.6 10^3/uL (0.0-1.0); MONOCYTES % (AUTO) 8 % (0-12); NEUTROPHILS # (AUTO) 6.1 10^3/uL (1.8-7.8); NEUTROPHILS % (AUTO) 72 % (42-75); PLATELET COUNT 233 10^3/uL (130-400); WHITE BLOOD COUNT 8.6 10^3/uL (4.3-11.0)
[2022-04-12 10:16] LABS: CALCIUM 9.7 MG/DL (8.5-10.1)
[2022-04-12 10:21] LABS: CREATININE SERUM 0.79 MG/DL (0.60-1.30)
[2022-04-12 10:29] LABS: VALPROIC ACID 71.9 UG/ML (50.0-100.0)
[2022-04-12 11:35] VITALS: BP 141/85
== END 2022-04-12 11:35 | disposition home or self-care (01) ==
LOC: EDUNIT# 09:49 → ER 09:50
DX: G40.909 Epilepsy, unspecified, not intractable, without status epilepticus (principal); Z28.310 Unvaccinated for COVID-19
CPT/HCPCS: 36415; 80048; 80164; 83605; 85025

== ENCOUNTER 2022-10-05 15:27 | Emergency (ER) | payer OTHER ==
[~2022-10-05] VITALS: Ht 182.9 cm; Wt 77.1 kg
--- NOTE | 2022-10-05 16:02 | ED Upper Extremity ---
General Chief Complaint: Upper Extremity Stated Complaint: LEFT INDEX/MIDDLE FINGER INJURY Nursing Triage Note: PT AMBULATE TO ROOM FT1 WITH C/O LEFT INDEX AND LEFT MIDDLE FINGER PAIN. PT REPORTS HE SMASHED FINGERS WHILE WORKING ON A BOBCAT ON WEDNESDAY. PT REPORTS LAC TO INSIDE OF INDEX FINGER THAT HAS STOPPED BLEEDING. Source: patient Exam Limitations: no limitations History of Present Illness Date Seen by Provider: October 05, 2022 Time Seen by Provider: 15:59 Initial Comments Patient is a 27-year-old male presents ED with left middle and index finger injury. This occurred last Wednesday. He states he smashed his finger while working on a bobcat this past Wednesday. States he was opening the door to the back when his fingers got caught in between the door and the frame. Patient felt immediate pop. Small laceration superficial to the left index finger. Reports some bruising to the palmar side of the left middle finger. Mild distal redness. Pain with any type of movement. Denies taking thing for pain. Up-to-date on his tetanus. Denies of any distal numbness and tingling. Allergies and Home Medications Allergies Coded Allergies: Penicillins (Unverified Allergy, Unknown, 03/20/10) tramadol (Verified Allergy, Unknown, 03/05/22) hydrocodone (Verified Adverse Reaction, Mild, Nausea, 04/22/22) Uncoded Allergies: SHRIMP (Allergy, Unknown, 03/20/10) Patient Home Medication List Home Medication List Reviewed: Yes Cephalexin (Cephalexin) 500 Mg Tablet, 500 MG PO QID Prescribed by: ASHLYN MERRITT on 10/05/22 164 Chlorhexidine Gluconate (Chlorhexidine Gluconate) 0.12 % Mouthwash, 15 ML MM BID Prescribed by: LALO FINN on 03/10/222033 Clindamycin HCl (Clindamycin HCl) 300 Mg Capsule, 300 MG PO TID Prescribed by: LALO FINN on 03/10/222033 Clindamycin HCl (Clindamycin HCl) 300 Mg Capsule, 300 MG PO QID Prescribed by: ADARSH HOWARD on 04/10/22 0008 Diazepam (Diazepam) 2 Mg Tablet, 2 MG PO HS, (Reported) Entered as Reported by: MYLES FELTON on 03/12/22 1110 Divalproex Sodium (Divalproex Sodium) 250 Mg Tablet.dr, 250 MG PO BID PRN, (Reported) Entered as Reported by: MYLES EFLTON on 03/12/22 1110 Hydrocodone/Acetaminophen (Hydrocodone-Acetamin 5-325 mg) 5 Mg-325 Mg Tablet, 1 TAB PO Q4H PRN for PAIN-MODERATE (5-7) Prescribed by: YUSEF MOLINA on 04/10/22 1232 Naproxen (Naprosyn) 500 Mg Tablet, 500 MG PO BID PRN for PAIN-MODERATE (5-7) Prescribed by: YUSEF MOLINA on 12/30/19 1648 Ondansetron (Ondansetron Odt) 4 Mg Tab.rapdis, 4 MG SL Q4H PRN for NAUSEA/VOMITING Prescribed by: Cholo Humphries on 03/20/22 1755 Phenytoin Sodium Extended (Dilantin) 100 Mg Capsule, 300 MG PO HS Prescribed by: LALO FINN on 02/18/22 1620 Tramadol HCl (Tramadol HCl) 50 Mg Tablet, 50 MG PO Q6H PRN for PAIN Prescribed by: TONY GOINS on 01/16/20 1555 Review of Systems Constitutional: No chills, No diaphoresis EENTM: No blurred vision, No double vision Respiratory: No cough, No dyspnea on exertion Cardiovascular: No chest pain Gastrointestinal: No abdominal pain, No diarrhea, No nausea, No vomiting Genitourinary: No decreased output Musculoskeletal: No back pain; joint pain, joint swelling, muscle pain Skin: change in color All Other Systems Reviewed Negative Unless Noted: Yes Past Huibtyf-Dxylmj-Pfdnfb Hx Patient Social History Tobacco Use?: Yes Tobacco type used: Cigarettes Smoking Status: Current Everyday Smoker Smokeless Tobacco Frequency: Never a User Use of E-Cig and/or Vaping dev: No Use of E-Cig and/or Vaping Luan: Never a User Substance use?: Yes Substance type: Marijuana Substance frequency: Daily Alcohol Use?: No Pt feels they are or have been: No Immunizations Up To Date PED Vaccines UTD: Yes Seasonal Allergies Seasonal Allergies: No Past Medical History Surgery/Hospitalization HX: SEIZURES Surgeries: No Respiratory: No Cardiac: No Neurological: Yes Seizure Disorder Reproductive Disorders: No Genitourinary: No Gastrointestinal: No Musculoskeletal: No Endocrine: No HEENT: Yes (DENTAL CARIES/CHRONIC DENTAL PAIN COMPLAINTS) Cancer: No Psychosocial: No Integumentary: No Blood Disorders: No Family Medical History No Pertinent Family Hx Physical Exam Vital Signs Vital Signs - First Documented 10/05/22 15:40 Temp 36.7 Pulse 84 Resp 17 B/P (MAP) 134/78 (96) O2 Delivery Room Air Capillary Refill : Less Than 3 Seconds Height, Weight, BMI Height: 6'0" Weight: 160lbs. oz. 72.267653fp; 23.00 BMI Method:Stated General Appearance: WD/WN, no apparent distress HEENT: PERRL/EOMI, normal ENT inspection, TMs normal, pharynx normal Neck: non-tender, full range of motion, supple Cardiovascular: regular rate, rhythm, no edema, no gallop, no JVD Respiratory: chest non-tender, lungs clear, normal breath sounds, no respiratory distress, no accessory muscle use Gastrointestinal: normal bowel sounds, non tender, soft, no organomegaly Back: normal inspection, no CVA tenderness Wrist: Yes normal inspection, Yes non-tender, Yes no evidence of injury Hand: Left, bone tenderness (Mid index and middle finger tenderness. Superficial healing laceration to left index finger medial palmar side. Mild surrounding redness distally. 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, no motor/sensory deficits, alert, normal mood/affect, oriented x 3 Skin: other (1 cm superficial healing laceration to left index finger palmar side.) Progress/Results/Core Measures Results/Orders My Orders Orders - MALLORY KISER Hand, Left, 3 Views (10/05/22 15:58) Dipht,Pertuss(Acell),Tet Adult (Boostrix (10/05/22 16:45) Medications Given in ED Current Medications Medications Dose Ordered Sig/Desmond Route Start Time Stop Time Status Last Admin Dose Admin Diphtheria/ Tetanus/Acell Pertussis 0.5 ml ONCE ONCE IM 10/05/22 16:45 10/05/22 16:46 DC 10/05/22 16:56 0.5 ML Vital Signs/I&O 10/05/22 10/05/22 15:40 16:57 Temp 36.7 36.7 Pulse 84 84 Resp 17 17 B/P (MAP) 134/78 (96) 134/78 O2 Delivery Room Air Room Air Blood Pressure Mean: 96 Departure Communication (PCP) Differential diagnosis of phalanx fracture, cellulitis. Does have some notable redness distally of the index and ring finger. No fluctuant mass. Limited range of motion secondary to pain. X-ray was negative for fracture. Updated patient's tetanus here. Laceration will be closed by secondary intention. Wound is not gaping. Keflex prophylactically for the erythema. Discussed wound care. Chan tape for comfort. Return precaution were discussed Impression Primary Impression: Finger pain Disposition: HOME, SELF-CARE Condition: Stable Departure-Patient Inst. Decision time for Depature: 16:42 Referrals: DAVID ODONNELL MD (PCP/Family) Primary Care Physician Patient Instructions: Finger Sprain (DC) Add. Discharge Instructions: For the redness to take antibiotics. Keep the area clean. If worsening redness or swelling to return back to ED. All discharge instructions reviewed with patient and/or family. Voiced understanding. Scripts Cephalexin (Cephalexin) 500 Mg Tablet 500 MG PO QID for 7 Days, #28 TAB Prov: MALLORY KISER 10/05/22 MALLORY KISER October 05, 2022 16:02
--- NOTE | 2022-10-05 16:14 | Diagnostic Imaging Report ---
INDICATION: Left finger injury with pain. TECHNIQUE: AP, oblique and lateral views of left hand are obtained. FINDINGS: No acute fracture or dislocation is identified. No abnormal lytic or sclerotic focus is seen, and there is no radiopaque foreign body. IMPRESSION: No acute abnormality. Dictated by: Dictated on workstation # [id number]
[2022-10-05] MEDS ORDERED: CEPH500T PO (16:42)
[2022-10-05] MEDS ORDERED: TETANUS,DIPTH,PERTUSS P/F (BOOSTRIX) 0.5 ML VIAL IM ONE (16:45)
[2022-10-05 16:57] VITALS: BP 134/78
== END 2022-10-05 16:57 | disposition home or self-care (01) ==
LOC: EDUNIT# 15:27 → ER 15:30
DX: S61.211A Laceration without foreign body of left index finger without damage to nail, initial encounter (principal); S60.032A Contusion of left middle finger without damage to nail, initial encounter; F17.210 Nicotine dependence, cigarettes, uncomplicated; Z88.1 Allergy status to other antibiotic agents; Z28.310 Unvaccinated for COVID-19; W23.0XXA Caught, crushed, jammed, or pinched between moving objects, initial encounter; Y92.59 Other trade areas as the place of occurrence of the external cause; Y99.0 Civilian activity done for income or pay
CPT/HCPCS: 73130; 90715